=== PATIENT | male | born 1960 ===

== ENCOUNTER 2019-01-21 02:49 | Inpatient (IN) | payer SELFPAY ==
--- NOTE | 2019-01-21 02:55 | C.PDOC ---
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 Medics gave asa, 2 slnt and zofran with some improvement. Pt is very anxious, has some reproducible chest pain. Time Seen by Provider: 01/21/19 02:54 Chief Complaint (Nursing): Chest Pain History Per: Patient, EMS History/Exam Limitations: no limitations Onset/Duration Of Symptoms: Hrs Current Symptoms Are (Timing): Still Present Context: Other Severity: Severe Pain Scale Rating Of: 7 Quality: Aching, Pressure Associated Symptoms: denies: Nausea Modifying Factors: None Exacerbating Factors: None Alleviating Factors: None Nitro Therapy Administered: 2, Per EMS Recent travel outside of the [place]: No Additional History Per: EMS Past Medical History Vital Signs: Last Vital Signs Temp Pulse 127 H 01/21/19 02:51 Resp 16 01/21/19 02:51 BP 126/51 L 01/21/19 02:51 Pulse Ox 94 L 01/21/19 02:51 - [facility] Procedures EXTIRPATION OF MATTER FROM RECTUM, VIA OPENING (06/10/18) Family History: States: No Known Family Hx - Social History Hx Alcohol Use: No Hx Substance Use: No Review Of Systems Constitutional: Negative for: Fever, Chills Eyes: Negative for: Vision Change ENT: Negative for: Throat Pain Cardiovascular: Positive for: Chest Pain. Negative for: Palpitations, Orthopnea Respiratory: Negative for: Shortness of Breath Gastrointestinal: Positive for: Nausea. Negative for: Vomiting, Abdominal Pain Genitourinary: Negative for: Dysuria Musculoskeletal: Negative for: Back Pain Skin: Negative for: Rash Neurological: Negative for: Weakness Psych: Positive for: Anxiety Physical Exam - Physical Exam Appears: In Acute Distress Skin: Warm, Dry Head: Normacephalic Eye(s): bilateral: Normal Inspection Oral Mucosa: Dry Neck: Supple Chest: Symmetrical, Tenderness (sternal) Cardiovascular: Rhythm Regular Respiratory: No Rales, No Rhonchi, No Wheezing Gastrointestinal/Abdominal: Soft, No Tenderness, No Distention Back: No CVA Tenderness Extremity: Normal ROM Extremity: Bilateral: Atraumatic Pulses: Left Dorsalis Pedis: Normal, Right Dorsalis Pedis: Normal Neurological/Psych: Oriented x3 Gait: Steady ED Course And Treatment - Laboratory Results Result Diagrams: 01/21/19 03:19 01/21/19 03:19 ECG: Interpreted By Me, Viewed By Me ECG Rhythm: Sinus Tachycardia (128), Nonspecific Changes (wide complex tachycardia, ivcd) O2 Sat by Pulse Oximetry: 94 Pulse Ox Interpretation: Normal - Radiology CXR: Interpreted by Me, Viewed By Me CXR Interpretation: Yes: Other (mild vac congestion). No: Infiltrates, Fracture, Pnemothorax Progress Note: 2:43am texted dr gould the ems ekg - spoke with him - repeat ekg in arrival. 2:54 am ed ekg -as per dr gould - does not meet criteria for code heart. 3:[address] burgess - icu - will come and see the pt in the ed. 4:12 am pt cardioverted with 120J back into nsr 70 bpm. 4:20 repeat ekg shows acute iinferopost mi . [facility] heart called. dr gould on his way Critical Care Time - Critical Care Note Total Time (in mins): 30 Documented critical care: time excludes all time spent performing seperately billable procedures. Disposition Discussed With Dr.: Rylan Del Rosario Comment: accepted the pt [facility] is service and took over the care at 4:21 AM Counseled Patient/Family Regarding: Studies Performed, Diagnosis - Disposition Disposition: HOSPITALIZED Disposition Time: 02:55 Condition: CRITICAL - POA Present On Arrival: None - Clinical Impression Clinical Impression: Acute inferior myocardial infarction, Encounter for cardioversion procedure, Wide-complex tachycardia Decision To Admit - Pt Status Changed To: Hospital Disposition Of: Inpatient - Admit Certification Admit to Inpatient:: After my assessment, the patient will require hospitalization for at least two midnights. This is because of the severity of symptoms shown, intensity of services needed, and/or the medical risk in this patient being treated as an outpatient. - InPatient: Physician Admission Certification: I certify that this patient requires 2 or more midnights of care for the following reason:: After my assessment, the patient will require hospitalization for at least two midnights. This is because of the severity of symptoms shown, intensity of services needed, and/or the medical risk in this patient being treated as an outpatient. - . Bed Request Type: ICU Admitting Physician: Rylan Del Rosario Patient Diagnosis: Acute inferior myocardial infarction, Encounter for cardioversion procedure, Wide-complex tachycardia
[2019-01-21] MEDS ORDERED: DiphenhydrAMINE 50 mg/ml Inj IVP STA (02:56)
[2019-01-21] MEDS ORDERED: Amiodarone 150mg/3 ml vial ONE (02:56)
[2019-01-21] MEDS ORDERED: DiphenhydrAMINE 50 mg/ml Inj ONE (02:59)
[2019-01-21 03:22] LABS: BASO # 0.1 K/uL (0.0-0.2); BASO % 0.4 % (0.0-2.0); EOS # 0.1 K/uL (0.0-0.7); EOS % 0.5 % (0.0-4.0); HEMOGLOBIN 16.1 g/dL (12.0-18.0); LYMPH # 1.1 K/uL (1.0-4.3); LYMPH % 7.4 % (20.0-40.0); MEAN CELL VOLUME 91.9 fL (80.0-94.0); MEAN CORPUSCULAR HEMOGLOBIN 30.1 pg (27.0-31.0); MEAN CORPUSCULAR HGB CONC 32.8 g/dL (33.0-37.0); MEAN PLATELET VOLUME 8.7 fL (7.2-11.7); MONO # 0.6 K/uL (0.0-0.8); MONO % 4.2 % (0.0-10.0); NEUT # 13.4 K/uL (1.8-7.0); NEUT % 87.5 % (50.0-75.0); PLATELET COUNT 349 K/uL (130-400); RBC 5.35 Mil/uL (4.40-5.90); RED CELL DISTRIBUTION WIDTH 16.4 % (11.5-14.5); WHITE BLOOD COUNT 15.4 K/uL (4.8-10.8)
[2019-01-21] MEDS ORDERED: Sodium Chloride 0.9% 1,000 ML IV ONE ×3 (03:26→04:12)
[2019-01-21 03:56] LABS: ALB/GLOB RATIO 1.3 (1.0-2.1); ALBUMIN 4.1 g/dL (3.5-5.0); ALT/SGPT 74 U/L (21-72); AST/SGOT 107 U/L (17-59); BLOOD UREA NITROGEN 15 mg/dL (9-20); CALCIUM 10.1 mg/dl (8.6-10.4); GFR NON-AFRICAN AMERICAN > 60; INR 1.1
[2019-01-21] MEDS ORDERED: Midazolam 2 MG/2 ML VIAL ONE ×3 (04:01→05:25)
[2019-01-21] MEDS ORDERED: Midazolam 50 mg/10 ml Inj IVP ONE (04:15)
[2019-01-21 04:20] LABS: TROPONIN I 0.791 ng/mL (0.00-0.120)
[2019-01-21 04:54] LABS: LYMPHOCYTE 8 % (20-40); MONOCYTE 6 % (0-10); NEUTROPHIL 86 % (50-75); PLATELET ESTIMATE NORMAL (NORMAL); TOTAL CELLS COUNTED 100
[2019-01-21] MEDS ORDERED: Iodixanol 320 MG/ML 200 ML BOTTLE IV ONE (05:04)
[2019-01-21] MEDS ORDERED: Lidocaine 2% MPF (5 ml) Inj ONE (05:22)
[2019-01-21] MEDS ORDERED: DOPamine 400mg/250ml D5W 400 MG/250 ML BAG IV ONE (05:34)
[2019-01-21] MEDS ORDERED: Eptifibatide 0.75 mg/ml 75 MG/100 ML BAG IV ONE (05:40)
[2019-01-21] MEDS ORDERED: Eptifibatide 20 mg/10mL Inj IVP ONE (05:44)
[2019-01-21] MEDS: Eptifibatide 0.75 mg/ml 75 MG/100 ML BAG IV SCH ×4 (06:10→22:47)
--- NOTE | 2019-01-21 06:14 | CP.CCUPN ---
CCU Objective - Vital Signs / Intake & Output Vital Signs (Last 4 hours): Vital Signs Pulse Pulse Resp BP BP Pulse Ox 01/21/19 05:02 94 L 01/21/19 04:45 72 24 111/63 100 01/21/19 04:20 68 24 108/67 100 01/21/19 04:15 63 24 96/62 L 100 01/21/19 04:08 156 H 24 85/64 L 100 01/21/19 03:46 153 H 24 90/56 L 100 01/21/19 03:36 151 H 26 H 92/54 L 100 01/21/19 03:15 139 H 24 88/49 L 100 01/21/19 03:06 147 H 139 H 24 90/50 L 98/49 L 100 01/21/19 03:00 128 H 16 126/61 98 01/21/19 02:51 127 H 16 126/51 L 94 L Intake and Output (Last 8hrs): Intake & Output 01/20/19 01/20/19 01/21/19 14:59 22:59 06:59 Weight 185 lb - Medications Active Medications: Active Medications Generic Name Dose Route Start Last Admin Trade Name Freq PRN Reason Stop Dose Admin Amiodarone HCl 900 mg/ 500 mls @ 33.33 mls/hr 01/21/19 03:15 01/21/19 04:08 Dextrose IV 01/21/19 18:15 33.33 mls/hr .Q15H1M ONE Administration Protocol 1 MG/MIN - Patient Studies Lab Studies: Lab Studies 01/21/19 01/21/19 01/21/19 Range/Units 03:19 03:19 03:19 WBC (4.8-10.8) K/uL RBC (4.40-5.90) Mil/uL Hgb (12.0-18.0) g/dL Hct (35.0-51.0) % MCV (80.0-94.0) fL MCH (27.0-31.0) pg MCHC (33.0-37.0) g/dL RDW (11.5-14.5) % Plt Count (130-400) K/uL MPV (7.2-11.7) fL Neut % (Auto) (50.0-75.0) % Lymph % (Auto) (20.0-40.0) % Wilkes % (Auto) (0.0-10.0) % Eos % (Auto) (0.0-4.0) % Baso % (Auto) (0.0-2.0) % Neut # (Auto) (1.8-7.0) K/uL Lymph # (Auto) (1.0-4.3) K/uL Wilkes # (Auto) (0.0-0.8) K/uL Eos # (Auto) (0.0-0.7) K/uL Baso # (Auto) (0.0-0.2) K/uL Neutrophils % (Manual) (50-75) % Lymphocytes % (Manual) (20-40) % Monocytes % (Manual) (0-10) % Platelet Estimate (NORMAL) PT 12.0 (9.7-12.2) SECONDS INR 1.1 APTT 28 (21-34) SECONDS Sodium 137 (132-148) mmol/L Potassium 4.9 (3.6-5.2) mmol/L Chloride 104 (98-107) mmol/L Carbon Dioxide 24 (22-30) mmol/L Anion Gap 14 (10-20) BUN 15 (9-20) mg/dL Creatinine 1.1 (0.8-1.5) mg/dL Est GFR ( Amer) > 60 Est GFR (Non-Af Amer) > 60 POC Glucose (mg/dL) (65-110) mg/dL Random Glucose 110 (75-110) mg/dL Calcium 10.1 (8.6-10.4) mg/dl Magnesium 1.6 (1.6-2.3) mg/dL Total Bilirubin 0.8 (0.2-1.3) mg/dL AST 107 H D (17-59) U/L ALT 74 H (21-72) U/L Alkaline Phosphatase 52 (38-126) U/L Troponin I 0.7910 H* (0.00-0.120) ng/mL NT-Pro-B Natriuret Pep 189 (0-900) pg/mL Total Protein 7.3 (6.3-8.3) g/dL Albumin 4.1 (3.5-5.0) g/dL Globulin 3.2 (2.2-3.9) gm/dL Albumin/Globulin Ratio 1.3 (1.0-2.1) TSH 3rd Generation 2.33 (0.46-4.68) mIU/L Alcohol, Quantitative 18 H (0-10) mg/dl Blood Type Antibody Screen 01/21/19 01/21/19 01/21/19 Range/Units 03:19 03:00 02:55 WBC 15.4 H D (4.8-10.8) K/uL RBC 5.35 (4.40-5.90) Mil/uL Hgb 16.1 (12.0-18.0) g/dL Hct 49.2 (35.0-51.0) % MCV 91.9 (80.0-94.0) fL MCH 30.1 (27.0-31.0) pg MCHC 32.8 L (33.0-37.0) g/dL RDW 16.4 H (11.5-14.5) % Plt Count 349 (130-400) K/uL MPV 8.7 (7.2-11.7) fL Neut % (Auto) 87.5 H (50.0-75.0) % Lymph % (Auto) 7.4 L (20.0-40.0) % Wilkes % (Auto) 4.2 (0.0-10.0) % Eos % (Auto) 0.5 (0.0-4.0) % Baso % (Auto) 0.4 (0.0-2.0) % Neut # (Auto) 13.4 H (1.8-7.0) K/uL Lymph # (Auto) 1.1 (1.0-4.3) K/uL Wilkes # (Auto) 0.6 (0.0-0.8) K/uL Eos # (Auto) 0.1 (0.0-0.7) K/uL Baso # (Auto) 0.1 (0.0-0.2) K/uL Neutrophils % (Manual) 86 H (50-75) % Lymphocytes % (Manual) 8 L (20-40) % Monocytes % (Manual) 6 (0-10) % Platelet Estimate Normal (NORMAL) PT (9.7-12.2) SECONDS INR APTT (21-34) SECONDS Sodium (132-148) mmol/L Potassium (3.6-5.2) mmol/L Chloride (98-107) mmol/L Carbon Dioxide (22-30) mmol/L Anion Gap (10-20) BUN (9-20) mg/dL Creatinine (0.8-1.5) mg/dL Est GFR ( Amer) Est GFR (Non-Af Amer) POC Glucose (mg/dL) 109 (65-110) mg/dL Random Glucose (75-110) mg/dL Calcium (8.6-10.4) mg/dl Magnesium (1.6-2.3) mg/dL Total Bilirubin (0.2-1.3) mg/dL AST (17-59) U/L ALT (21-72) U/L Alkaline Phosphatase (38-126) U/L Troponin I (0.00-0.120) ng/mL NT-Pro-B Natriuret Pep (0-900) pg/mL Total Protein (6.3-8.3) g/dL Albumin (3.5-5.0) g/dL Globulin (2.2-3.9) gm/dL Albumin/Globulin Ratio (1.0-2.1) TSH 3rd Generation (0.46-4.68) mIU/L Alcohol, Quantitative (0-10) mg/dl Blood Type O POSITIVE Antibody Screen Negative Laboratory Results - last 24 hr 01/21/19 01/21/19 01/21/19 02:55 03:00 03:19 WBC 15.4 H D RBC 5.35 Hgb 16.1 Hct 49.2 MCV 91.9 MCH 30.1 MCHC 32.8 L RDW 16.4 H Plt Count 349 MPV 8.7 Neut % (Auto) 87.5 H Lymph % (Auto) 7.4 L Wilkes % (Auto) 4.2 Eos % (Auto) 0.5 Baso % (Auto) 0.4 Neut # (Auto) 13.4 H Lymph # (Auto) 1.1 Wilkes # (Auto) 0.6 Eos # (Auto) 0.1 Baso # (Auto) 0.1 Neutrophils % (Manual) 86 H Lymphocytes % (Manual) 8 L Monocytes % (Manual) 6 Platelet Estimate Normal PT INR APTT Sodium Potassium Chloride Carbon Dioxide Anion Gap BUN Creatinine Est GFR ( Amer) Est GFR (Non-Af Amer) POC Glucose (mg/dL) 109 Random Glucose Calcium Magnesium Total Bilirubin AST ALT Alkaline Phosphatase Troponin I NT-Pro-B Natriuret Pep Total Protein Albumin Globulin Albumin/Globulin Ratio TSH 3rd Generation Alcohol, Quantitative Blood Type O POSITIVE Antibody Screen Negative 01/21/19 01/21/19 01/21/19 03:19 03:19 03:19 WBC RBC Hgb Hct MCV MCH MCHC RDW Plt Count MPV Neut % (Auto) Lymph % (Auto) Wilkes % (Auto) Eos % (Auto) Baso % (Auto) Neut # (Auto) Lymph # (Auto) Wilkes # (Auto) Eos # (Auto) Baso # (Auto) Neutrophils % (Manual) Lymphocytes % (Manual) Monocytes % (Manual) Platelet Estimate PT 12.0 INR 1.1 APTT 28 Sodium 137 Potassium 4.9 Chloride 104 Carbon Dioxide 24 Anion Gap 14 BUN 15 Creatinine 1.1 Est GFR ( Amer) > 60 Est GFR (Non-Af Amer) > 60 POC Glucose (mg/dL) Random Glucose 110 Calcium 10.1 Magnesium 1.6 Total Bilirubin 0.8 AST 107 H D ALT 74 H Alkaline Phosphatase 52 Troponin I 0.7910 H* NT-Pro-B Natriuret Pep 189 Total Protein 7.3 Albumin 4.1 Globulin 3.2 Albumin/Globulin Ratio 1.3 TSH 3rd Generation 2.33 Alcohol, Quantitative 18 H Blood Type Antibody Screen EKG/Cardiology Studies: Cardiology / EKG Studies 01/21/19 02:55 ELECTROCARDIOGRAM Stat Comment: Mode Of Transportation: BED Reason For Exam: chest pain Fingerstick Blood Sugar Results: 109
--- NOTE | 2019-01-21 07:04 | CP.PCM.HP ---
<Brittney Dawson - Last Filed: 01/21/19 07:38> History of Present Illness - History of Present Illness History of Present Illness: cc: "chest pain" 58 year old male with unknown PMH was BIBA for sudden onset chest pain approximately 1 hour [employer]. He was found to be in wide complex tachycardia en route. Repeat EKG in ED showed wide complex tachycardia. He was given high dose ASA, 3mg midazolam and cardioverted in the ED. Post cardioversion, repeat EKG showed STEMI in inferior leads and Code Heart called. Unable to obtain further history since patient was not verbally responsive at that time. Present on Admission - Present on Admission Any Indicators Present on Admission: No Review of Systems - Review of Systems Systems not reviewed;Unavailable: Acuity of Condition, Altered Mental Status Past Patient History - Past Social History Smoking Status: Light Smoker < 10 Cigarettes Daily - MUSCULOSKELETAL/RHEUMATOLOGICAL Hx Falls: No - GASTROINTESTINAL Other/Comment: foreign body inside the rectum - PSYCHIATRIC Hx Substance Use: No - SURGICAL HISTORY Hx Surgeries: No - ANESTHESIA Hx Anesthesia: No Hx Anesthesia Reactions: No Hx Malignant Hyperthermia: No Meds Allergies/Adverse Reactions: Allergies Allergy/AdvReac Type Severity Reaction Status Date / Time No Known Allergies Allergy Verified 01/21/19 02:54 Physical Exam - Constitutional Appears: In Acute Distress - Head Exam Head Exam: ATRAUMATIC, NORMOCEPHALIC - Eye Exam Eye Exam: PERRL - ENT Exam ENT Exam: Mucous Membranes Moist - Respiratory Exam Respiratory Exam: Clear to Auscultation Bilateral, NORMAL BREATHING PATTERN - Cardiovascular Exam Cardiovascular Exam: Tachycardia, +S1, +S2 - GI/Abdominal Exam GI & Abdominal Exam: Distended, Soft - Extremities Exam Extremities exam: Positive for: normal capillary refill, pedal pulses present - Neurological Exam Neurological exam: Altered - Skin Skin Exam: Dry, Normal Color, Warm Results - Vital Signs Recent Vital Signs: Last Vital Signs Temp Pulse 72 01/21/19 04:45 Resp 24 01/21/19 04:45 BP 111/63 01/21/19 04:45 Pulse Ox 94 L 01/21/19 05:02 - Labs Result Diagrams: 01/21/19 03:19 01/21/19 03:19 Labs: Laboratory Results - last 24 hr 01/21/19 01/21/19 01/21/19 02:55 03:00 03:19 WBC 15.4 H D RBC 5.35 Hgb 16.1 Hct 49.2 MCV 91.9 MCH 30.1 MCHC 32.8 L RDW 16.4 H Plt Count 349 MPV 8.7 Neut % (Auto) 87.5 H Lymph % (Auto) 7.4 L Giles % (Auto) 4.2 Eos % (Auto) 0.5 Baso % (Auto) 0.4 Neut # (Auto) 13.4 H Lymph # (Auto) 1.1 Giles # (Auto) 0.6 Eos # (Auto) 0.1 Baso # (Auto) 0.1 Neutrophils % (Manual) 86 H Lymphocytes % (Manual) 8 L Monocytes % (Manual) 6 Platelet Estimate Normal PT INR APTT Sodium Potassium Chloride Carbon Dioxide Anion Gap BUN Creatinine Est GFR ( Amer) Est GFR (Non-Af Amer) POC Glucose (mg/dL) 109 Random Glucose Calcium Magnesium Total Bilirubin AST ALT Alkaline Phosphatase Troponin I NT-Pro-B Natriuret Pep Total Protein Albumin Globulin Albumin/Globulin Ratio TSH 3rd Generation Alcohol, Quantitative Blood Type O POSITIVE Antibody Screen Negative 01/21/19 01/21/19 01/21/19 03:19 03:19 03:19 WBC RBC Hgb Hct MCV MCH MCHC RDW Plt Count MPV Neut % (Auto) Lymph % (Auto) Giles % (Auto) Eos % (Auto) Baso % (Auto) Neut # (Auto) Lymph # (Auto) Giles # (Auto) Eos # (Auto) Baso # (Auto) Neutrophils % (Manual) Lymphocytes % (Manual) Monocytes % (Manual) Platelet Estimate PT 12.0 INR 1.1 APTT 28 Sodium 137 Potassium 4.9 Chloride 104 Carbon Dioxide 24 Anion Gap 14 BUN 15 Creatinine 1.1 Est GFR ( Amer) > 60 Est GFR (Non-Af Amer) > 60 POC Glucose (mg/dL) Random Glucose 110 Calcium 10.1 Magnesium 1.6 Total Bilirubin 0.8 AST 107 H D ALT 74 H Alkaline Phosphatase 52 Troponin I 0.7910 H* NT-Pro-B Natriuret Pep 189 Total Protein 7.3 Albumin 4.1 Globulin 3.2 Albumin/Globulin Ratio 1.3 TSH 3rd Generation 2.33 Alcohol, Quantitative 18 H Blood Type Antibody Screen - EKG Data EKG Interpreted by: ER Physician EKG shows normal: QRS complexes - EKG Data When Compared to Previous EKG: Significant Changes Assessment & Plan - Assessment and Plan (Free Text) Assessment: 58yo M with unknown PMH BIBA for acute onset chest pain, cardioverted in ED, and shown to be having STEMI. Code Heart called, currently post cath in ICU. Plan: STEMI Patient is s/p cardiac catherization by Dr. Raygoza. Orders per ICU d/w Dr. Carin Dawson PGY-1 - Date & Time Date: 01/21/19 Time: 04:30 <Rylan Del Rosario - Last Filed: 01/21/19 19:03> Results - Vital Signs Recent Vital Signs: Last Vital Signs Temp 99.3 F 01/21/19 16:00 Pulse 76 01/21/19 18:00 Resp 15 01/21/19 18:00 BP 134/67 01/21/19 17:29 Pulse Ox 97 01/21/19 18:00 - Labs Result Diagrams: 01/21/19 03:19 01/21/19 03:19 Labs: Laboratory Results - last 24 hr 01/21/19 01/21/19 01/21/19 02:55 03:00 03:19 WBC 15.4 H D RBC 5.35 Hgb 16.1 Hct 49.2 MCV 91.9 MCH 30.1 MCHC 32.8 L RDW 16.4 H Plt Count 349 MPV 8.7 Neut % (Auto) 87.5 H Lymph % (Auto) 7.4 L Giles % (Auto) 4.2 Eos % (Auto) 0.5 Baso % (Auto) 0.4 Neut # (Auto) 13.4 H Lymph # (Auto) 1.1 Giles # (Auto) 0.6 Eos # (Auto) 0.1 Baso # (Auto) 0.1 Neutrophils % (Manual) 86 H Lymphocytes % (Manual) 8 L Monocytes % (Manual) 6 Platelet Estimate Normal PT INR APTT Sodium Potassium Chloride Carbon Dioxide Anion Gap BUN Creatinine Est GFR ( Amer) Est GFR (Non-Af Amer) POC Glucose (mg/dL) 109 Random Glucose Hemoglobin A1c Calcium Magnesium Total Bilirubin AST ALT Alkaline Phosphatase Troponin I NT-Pro-B Natriuret Pep Total Protein Albumin Globulin Albumin/Globulin Ratio Triglycerides Cholesterol LDL Cholesterol Direct HDL Cholesterol TSH 3rd Generation Alcohol, Quantitative Blood Type O POSITIVE Antibody Screen Negative 01/21/19 01/21/19 01/21/19 03:19 03:19 03:19 WBC RBC Hgb Hct MCV MCH MCHC RDW Plt Count MPV Neut % (Auto) Lymph % (Auto) Giles % (Auto) Eos % (Auto) Baso % (Auto) Neut # (Auto) Lymph # (Auto) Giles # (Auto) Eos # (Auto) Baso # (Auto) Neutrophils % (Manual) Lymphocytes % (Manual) Monocytes % (Manual) Platelet Estimate PT 12.0 INR 1.1 APTT 28 Sodium 137 Potassium 4.9 Chloride 104 Carbon Dioxide 24 Anion Gap 14 BUN 15 Creatinine 1.1 Est GFR ( Amer) > 60 Est GFR (Non-Af Amer) > 60 POC Glucose (mg/dL) Random Glucose 110 Hemoglobin A1c Calcium 10.1 Magnesium 1.6 Total Bilirubin 0.8 AST 107 H D ALT 74 H Alkaline Phosphatase 52 Troponin I 0.7910 H* NT-Pro-B Natriuret Pep 189 Total Protein 7.3 Albumin 4.1 Globulin 3.2 Albumin/Globulin Ratio 1.3 Triglycerides 102 Cholesterol 143 LDL Cholesterol Direct 116 HDL Cholesterol 21 L TSH 3rd Generation 2.33 Alcohol, Quantitative 18 H Blood Type Antibody Screen 01/21/19 01/21/19 08:32 10:45 WBC RBC Hgb Hct MCV MCH MCHC RDW Plt Count MPV Neut % (Auto) Lymph % (Auto) Giles % (Auto) Eos % (Auto) Baso % (Auto) Neut # (Auto) Lymph # (Auto) Giles # (Auto) Eos # (Auto) Baso # (Auto) Neutrophils % (Manual) Lymphocytes % (Manual) Monocytes % (Manual) Platelet Estimate PT INR APTT Sodium Potassium Chloride Carbon Dioxide Anion Gap BUN Creatinine Est GFR ( Amer) Est GFR (Non-Af Amer) POC Glucose (mg/dL) Random Glucose Hemoglobin A1c 4.9 Calcium Magnesium Total Bilirubin AST ALT Alkaline Phosphatase Troponin I 242.0000 H* NT-Pro-B Natriuret Pep Total Protein Albumin Globulin Albumin/Globulin Ratio Triglycerides Cholesterol LDL Cholesterol Direct HDL Cholesterol TSH 3rd Generation Alcohol, Quantitative Blood Type Antibody Screen Assessment & Plan - Date & Time Date: 01/21/19 (I have seen and examined the patient. I agree with the findings and plan of care as documented by Dr. Dawson. Patient with chest pain. STEMI. Code heart called in ED. Intervention by Dr Raygoza. Admit to ICU after cath. Further management as per Cardio and ICU. Monitor for acute changes.) Time: 19:02 Attending/Attestation - Attestation I have personally seen and examined this patient.: Yes I have fully participated in the care of the patient.: Yes I have reviewed all pertinent clinical information: Yes
[2019-01-21] MEDS: Sodium Chloride 0.9% 1,000 ML IV SCH (07:15)
--- NOTE | 2019-01-21 07:38 | RAD ---
Date of service: 01/21/2019 HISTORY: chest pain COMPARISON: None available. TECHNIQUE: 1 view obtained. FINDINGS: LUNGS: Marked emphysematous changes favored over pneumothorax medial left apex. Clinically correlate further. No infiltrate bilaterally. PLEURA: No significant pleural effusion identified, no pneumothorax apparent. CARDIOVASCULAR: No aortic atherosclerotic calcification present. Normal cardiac size. No pulmonary vascular congestion. OSSEOUS STRUCTURES: No significant abnormalities. VISUALIZED UPPER ABDOMEN: Normal. OTHER FINDINGS: None. IMPRESSION: Marked emphysematous changes medial left apex. No acute infiltrate or pleural effusion. No definitive pneumothorax. Clinically correlate further nevertheless.
--- NOTE | 2019-01-21 09:30 | CP.PCM.PN ---
Subjective - Date & Time of Evaluation Date of Evaluation: 01/21/19 Time of Evaluation: 09:20 - Subjective Subjective: Medical Attending Note: Patient seen and examined. Patient reports he has a girlfriend and reports does not want his girlfriend knowing his information. He reports yesterday he was carrying groceries in his gym bag and felt this heaviness in the chest. He reports he has not had chest pain before. He reports he takes 1-2 shots of beer occasional. 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 He reports he does not take medications at home. He reports on occasion he takes Viagra, which he is advised to not use given he will need medications for his heart and will want to avoid hypotension. Patient reports he says see Dr. Rice. Medical hx: hypertension, prior hospitalization (foreign body insertion/vibrator) Allergies: NKDA Family hx: father-[place] age 55, has 5 brothers/sisters; he is the oldest Social: 3 cigarettes a week since the age of 17, he reports he eats 6x a day, primarily meat (turkey/chicken/potatoes) HCM: Dr. Rice. Objective - Vital Signs/Intake and Output Vital Signs (last 24 hours): Temp Pulse Resp BP Pulse Ox 98.2 F 65 22 118/67 97 01/21/19 08:00 01/21/19 08:40 01/21/19 08:40 01/21/19 08:30 01/21/19 08:40 Intake and Output: 01/21/19 01/21/19 06:59 18:59 Intake Total 63.4 190.2 Output Total 0 350 Balance 63.4 -159.8 - Medications Medications: Current Medications Aspirin (Aspirin Chewable) 81 mg PO DAILY [facility] Carvedilol (Coreg) 3.125 mg PO BID [facility] Eptifibatide (Integrilin) 75 mg in 100 mls @ 13.426 mls/hr IV .Q7H27M [facility] Last Admin: 01/21/19 06:10 Dose: 13.426 mls/hr Sodium Chloride (Sodium Chloride 0.9%) 1,000 mls @ 50 mls/hr IV .Q20H [facility] Last Admin: 01/21/19 07:15 Dose: 50 mls/hr Rosuvastatin Calcium (Crestor) 5 mg PO HS [facility] Ticagrelor (Brilinta) 60 mg PO BID [facility]ANI - Labs Labs: 01/21/19 03:19 01/21/19 03:19 PT 12.0 SECONDS (9.7-12.2) 01/21/19 03:19 INR 1.1 01/21/19 03:19 APTT 28 SECONDS (21-34) 01/21/19 03:19 - Constitutional Appears: Non-toxic, No Acute Distress - Head Exam Head Exam: NORMAL INSPECTION Additional comments: very flushed over the chest and sun burned - Eye Exam Eye Exam: EOMI - ENT Exam ENT Exam: Mucous Membranes Moist - Respiratory Exam Respiratory Exam: Clear to Ausculation Bilateral, NORMAL BREATHING PATTERN. absent: Rales, Rhonchi, Wheezes - Cardiovascular Exam Cardiovascular Exam: REGULAR RHYTHM, +S1, +S2 - GI/Abdominal Exam GI & Abdominal Exam: Soft, Normal Bowel Sounds. absent: Distended, Firm, Guarding, Rigid, Tenderness, Rebound - Extremities Exam Extremities Exam: absent: Pedal Edema, Tenderness Additional comments: toe nails are very brittle and green (reports it is from dye from [email or web address] shoes) - Neurological Exam Neurological Exam: Alert, Awake, Oriented x3 - Skin Skin Exam: Normal Color (except for toe nails), Warm Assessment and Plan (1) Acute inferior myocardial infarction Status: Acute (2) Hypertension Status: Acute (3) Smoker Status: Acute (4) Family history of [place] (myocardial infarction) Status: Acute (5) Alcohol use Status: Acute (6) Prophylactic measure Status: Acute
--- NOTE | 2019-01-21 09:34 | CP.PCM.PN ---
Subjective - Date & Time of Evaluation Date of Evaluation: 01/21/19 Time of Evaluation: 09:00 - Subjective Subjective: Medical Attending Note: Patient seen and examined. Patient reports he has a girlfriend and reports does not want his girlfriend knowing his information. He reports yesterday he was carrying groceries in his gym bag and felt this heaviness in the chest. He reports he has not had chest pain before. He reports he takes 1-2 shots of beer occasional. 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 He reports he does not take medications at home. He reports on occasion he takes Viagra, which he is advised to not use given he will need medications for his heart and will want to avoid hypotension. Patient reports he says see Dr. Rice. Presently, patient is hungry wants his breakfast. reports mild tinging in his chest, denies headache, denies shortness of breathe, denies cough, denies abdominal pain, denies leg cramps, denies constipation, denies diarrhea. Patient reports the color his nails is dye from his rain soaked [employer] shoes. Medical hx: hypertension, prior hospitalization (foreign body insertion/vibrator), migraines Surgery hx: cyst removed over right side of chest, and foreign body removed Allergies: NKDA Family hx: father-RI age 55, has 5 brothers/sisters; he is the oldest Social: 3 cigarettes a week since the age of 17, he reports he eats 6x a day, primarily meat (turkey/chicken/potatoes) HCM: Dr. Rice. Objective - Vital Signs/Intake and Output Vital Signs (last 24 hours): Temp Pulse Resp BP Pulse Ox 98.2 F 68 12 117/60 98 01/21/19 08:00 01/21/19 09:28 01/21/19 09:28 01/21/19 09:28 01/21/19 09:28 Intake and Output: 01/21/19 01/21/19 06:59 18:59 Intake Total 63.4 190.2 Output Total 0 350 Balance 63.4 -159.8 - Medications Medications: Current Medications Aspirin (Aspirin Chewable) 81 mg PO DAILY [facility] Carvedilol (Coreg) 3.125 mg PO BID [facility] Eptifibatide (Integrilin) 75 mg in 100 mls @ 13.426 mls/hr IV .Q7H27M [facility] Last Admin: 01/21/19 06:10 Dose: 13.426 mls/hr Sodium Chloride (Sodium Chloride 0.9%) 1,000 mls @ 50 mls/hr IV .Q20H [facility] Last Admin: 01/21/19 07:15 Dose: 50 mls/hr Rosuvastatin Calcium (Crestor) 5 mg PO HS [facility] Ticagrelor (Brilinta) 60 mg PO BID [facility] - Labs Labs: 01/21/19 03:19 01/21/19 03:19 PT 12.0 SECONDS (9.7-12.2) 01/21/19 03:19 INR 1.1 01/21/19 03:19 APTT 28 SECONDS (21-34) 01/21/19 03:19 - Constitutional Appears: Non-toxic, No Acute Distress - Head Exam Head Exam: NORMAL INSPECTION Additional comments: flushed/sunburned - Eye Exam Eye Exam: EOMI - ENT Exam ENT Exam: Mucous Membranes Moist - Respiratory Exam Respiratory Exam: Clear to Ausculation Bilateral, NORMAL BREATHING PATTERN. absent: Rales, Rhonchi, Wheezes - Cardiovascular Exam Cardiovascular Exam: REGULAR RHYTHM, +S1, +S2 - GI/Abdominal Exam GI & Abdominal Exam: Soft, Normal Bowel Sounds. absent: Distended, Firm, Guarding, Rigid, Tenderness, Rebound - Extremities Exam Extremities Exam: absent: Pedal Edema, Tenderness Additional comments: nails: green dye, broken nails, poor hygiene - Neurological Exam Neurological Exam: Alert, Awake, Oriented x3 - Psychiatric Exam Psychiatric exam: Normal Affect, Normal Mood - Skin Skin Exam: Dry, Intact, Normal Color, Warm Assessment and Plan (1) Acute inferior myocardial infarction Assessment & Plan: Cardiology (Dr. Raygoza) on case-->help appreciated Code heart Aspirin 81mg PO daily Coreg 3.125mg PO BID Integriln drip Crestor 5mg POqHS Brilinta 90mg PO biD pending cath report Echocardiogram GARCIA: male, hypertension, smoker, and family history of RI (father age 55) EKG: inferior wall RI +troponin a1c: 4.9 Lipid panel: check TSH pending UDS Status: Acute (2) Alcohol use Assessment & Plan: admits to 1-2 shots of beer occasional elevated alcohol on admission patient does not appear in withdrawal Status: Acute (3) Family history of RI (myocardial infarction) Assessment & Plan: Father at age 55 Status: Acute (4) Hypertension Assessment & Plan: Coreg 3.125mg PO BID Status: Acute (5) Smoker Assessment & Plan: smoking cessation advised nictone patch ordered Status: Acute (6) Obesity Assessment & Plan: 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
--- NOTE | 2019-01-21 10:51 | CP.CCUPN ---
CCU Subjective - Physician Review Subjective (Free Text): STEMI S/P Cardiac Cath Pt seen and evaluated this am. Denies chest pain or sob. Reports mild right inguinal pain, states he had hernia repair years ago. Critical Care Time Spent (in minutes): 35 CCU Objective - Vital Signs / Intake & Output Vital Signs (Last 4 hours): Vital Signs Temp Pulse Resp BP Pulse Ox 01/21/19 08:40 65 22 97 01/21/19 08:30 66 22 01/21/19 08:28 66 21 118/67 01/21/19 08:20 69 23 01/21/19 08:16 66 23 117/69 01/21/19 08:10 68 22 100 01/21/19 08:01 65 16 121/71 100 01/21/19 08:00 98.2 F 69 17 100 01/21/19 07:50 78 15 99 01/21/19 07:46 69 15 112/74 100 01/21/19 07:40 68 20 99 01/21/19 07:31 71 24 111/67 99 01/21/19 07:30 73 24 99 01/21/19 07:20 70 23 99 01/21/19 07:16 68 21 113/70 99 01/21/19 07:10 68 23 99 01/21/19 07:01 68 20 113/69 100 01/21/19 07:00 68 24 100 01/21/19 06:50 67 24 100 01/21/19 06:46 66 24 112/68 100 01/21/19 06:41 20 01/21/19 06:40 66 20 100 01/21/19 06:31 67 25 H 103/64 99 01/21/19 06:30 98.1 F 77 20 101/59 L 97 01/21/19 06:22 85 26 H 98 01/21/19 05:02 94 L Intake and Output (Last 8hrs): Intake & Output 01/20/19 01/21/19 01/21/19 22:59 06:59 14:59 Intake Total 126.8 Output Total 350 Balance -223.2 Weight 185 lb 196 lb Intake: Intake, IV Amount 126.8 Right Distal Port Forearm 100 Right Forearm 26.8 Output: Urine 350 Urine, Voided 350 Other: Voiding Method Urinal - Physical Exam Head: Positive for: Atraumatic, Normocephalic Pupils: Positive for: PERRL Extroacular Muscles: Positive for: EOMI Mouth: Positive for: Moist Mucous Membranes Respiratory/Chest: Positive for: Clear to Auscultation. Negative for: Respiratory Distress, Wheezes Cardiovascular: Positive for: Regular Rate and Rhythm. Negative for: Murmurs Genitourinary Male: Positive for: Hernias (small inguinal bulge, non tender) Lower Extremity: Positive for: NORMAL PULSES, Capillary Refill < 2 s, Other (black nails, pt states it is dye from shoes). Negative for: Edema, Cyanosis, Swelling (no groin swelling or ecchymosis ) Skin: Positive for: Normal Color Psychiatric: Positive for: Alert, Oriented x 3 - Medications Active Medications: Active Medications Generic Name Dose Route Start Last Admin Trade Name Freq PRN Reason Stop Dose Admin Aspirin 81 mg 01/21/19 10:00 Aspirin Chewable PO DAILY [facility] Carvedilol 3.125 mg 01/21/19 10:00 Coreg PO BID [facility] Eptifibatide 75 mg in 100 mls @ 13.426 mls/hr 01/21/19 07:15 01/21/19 06:10 Integrilin IV 13.426 mls/hr .Q7H27M [facility] Administration 2 MCG/KG/MIN Sodium Chloride 1,000 mls @ 50 mls/hr 01/21/19 07:15 01/21/19 07:15 Sodium Chloride 0.9% IV 50 mls/hr .Q20H [facility] Administration Rosuvastatin Calcium 5 mg 01/21/19 22:00 Crestor PO HS [facility] Ticagrelor 60 mg 01/21/19 10:00 Brilinta PO BID [facility] - Patient Studies Lab Studies: Lab Studies 01/21/19 01/21/19 01/21/19 Range/Units 08:32 03:19 03:19 WBC (4.8-10.8) K/uL RBC (4.40-5.90) Mil/uL Hgb (12.0-18.0) g/dL Hct (35.0-51.0) % MCV (80.0-94.0) fL MCH (27.0-31.0) pg MCHC (33.0-37.0) g/dL RDW (11.5-14.5) % Plt Count (130-400) K/uL MPV (7.2-11.7) fL Neut % (Auto) (50.0-75.0) % Lymph % (Auto) (20.0-40.0) % [place] % (Auto) (0.0-10.0) % Eos % (Auto) (0.0-4.0) % Baso % (Auto) (0.0-2.0) % Neut # (Auto) (1.8-7.0) K/uL Lymph # (Auto) (1.0-4.3) K/uL [place] # (Auto) (0.0-0.8) K/uL Eos # (Auto) (0.0-0.7) K/uL Baso # (Auto) (0.0-0.2) K/uL Neutrophils % (Manual) (50-75) % Lymphocytes % (Manual) (20-40) % Monocytes % (Manual) (0-10) % Platelet Estimate (NORMAL) PT (9.7-12.2) SECONDS INR APTT (21-34) SECONDS Sodium 137 (132-148) mmol/L Potassium 4.9 (3.6-5.2) mmol/L Chloride 104 (98-107) mmol/L Carbon Dioxide 24 (22-30) mmol/L Anion Gap 14 (10-20) BUN 15 (9-20) mg/dL Creatinine 1.1 (0.8-1.5) mg/dL Est GFR ( Amer) > 60 Est GFR (Non-Af Amer) > 60 POC Glucose (mg/dL) (65-110) mg/dL Random Glucose 110 (75-110) mg/dL Hemoglobin A1c 4.9 (4.2-6.5) % Calcium 10.1 (8.6-10.4) mg/dl Magnesium 1.6 (1.6-2.3) mg/dL Total Bilirubin 0.8 (0.2-1.3) mg/dL AST 107 H D (17-59) U/L ALT 74 H (21-72) U/L Alkaline Phosphatase 52 (38-126) U/L Troponin I 0.7910 H* (0.00-0.120) ng/mL NT-Pro-B Natriuret Pep 189 (0-900) pg/mL Total Protein 7.3 (6.3-8.3) g/dL Albumin 4.1 (3.5-5.0) g/dL Globulin 3.2 (2.2-3.9) gm/dL Albumin/Globulin Ratio 1.3 (1.0-2.1) Triglycerides 102 (0-149) mg/dL Cholesterol 143 (0-199) mg/dL HDL Cholesterol 21 L (30-70) mg/dL TSH 3rd Generation 2.33 (0.46-4.68) mIU/L Alcohol, Quantitative 18 H (0-10) mg/dl Blood Type Antibody Screen 01/21/19 01/21/19 01/21/19 Range/Units 03:19 03:19 03:00 WBC 15.4 H D (4.8-10.8) K/uL RBC 5.35 (4.40-5.90) Mil/uL Hgb 16.1 (12.0-18.0) g/dL Hct 49.2 (35.0-51.0) % MCV 91.9 (80.0-94.0) fL MCH 30.1 (27.0-31.0) pg MCHC 32.8 L (33.0-37.0) g/dL RDW 16.4 H (11.5-14.5) % Plt Count 349 (130-400) K/uL MPV 8.7 (7.2-11.7) fL Neut % (Auto) 87.5 H (50.0-75.0) % Lymph % (Auto) 7.4 L (20.0-40.0) % [place] % (Auto) 4.2 (0.0-10.0) % Eos % (Auto) 0.5 (0.0-4.0) % Baso % (Auto) 0.4 (0.0-2.0) % Neut # (Auto) 13.4 H (1.8-7.0) K/uL Lymph # (Auto) 1.1 (1.0-4.3) K/uL [place] # (Auto) 0.6 (0.0-0.8) K/uL Eos # (Auto) 0.1 (0.0-0.7) K/uL Baso # (Auto) 0.1 (0.0-0.2) K/uL Neutrophils % (Manual) 86 H (50-75) % Lymphocytes % (Manual) 8 L (20-40) % Monocytes % (Manual) 6 (0-10) % Platelet Estimate Normal (NORMAL) PT 12.0 (9.7-12.2) SECONDS INR 1.1 APTT 28 (21-34) SECONDS Sodium (132-148) mmol/L Potassium (3.6-5.2) mmol/L Chloride (98-107) mmol/L Carbon Dioxide (22-30) mmol/L Anion Gap (10-20) BUN (9-20) mg/dL Creatinine (0.8-1.5) mg/dL Est GFR ( Amer) Est GFR (Non-Af Amer) POC Glucose (mg/dL) 109 (65-110) mg/dL Random Glucose (75-110) mg/dL Hemoglobin A1c (4.2-6.5) % Calcium (8.6-10.4) mg/dl Magnesium (1.6-2.3) mg/dL Total Bilirubin (0.2-1.3) mg/dL AST (17-59) U/L ALT (21-72) U/L Alkaline Phosphatase (38-126) U/L Troponin I (0.00-0.120) ng/mL NT-Pro-B Natriuret Pep (0-900) pg/mL Total Protein (6.3-8.3) g/dL Albumin (3.5-5.0) g/dL Globulin (2.2-3.9) gm/dL Albumin/Globulin Ratio (1.0-2.1) Triglycerides (0-149) mg/dL Cholesterol (0-199) mg/dL HDL Cholesterol (30-70) mg/dL TSH 3rd Generation (0.46-4.68) mIU/L Alcohol, Quantitative (0-10) mg/dl Blood Type Antibody Screen 01/21/19 Range/Units 02:55 WBC (4.8-10.8) K/uL RBC (4.40-5.90) Mil/uL Hgb (12.0-18.0) g/dL Hct (35.0-51.0) % MCV (80.0-94.0) fL MCH (27.0-31.0) pg MCHC (33.0-37.0) g/dL RDW (11.5-14.5) % Plt Count (130-400) K/uL MPV (7.2-11.7) fL Neut % (Auto) (50.0-75.0) % Lymph % (Auto) (20.0-40.0) % [place] % (Auto) (0.0-10.0) % Eos % (Auto) (0.0-4.0) % Baso % (Auto) (0.0-2.0) % Neut # (Auto) (1.8-7.0) K/uL Lymph # (Auto) (1.0-4.3) K/uL [place] # (Auto) (0.0-0.8) K/uL Eos # (Auto) (0.0-0.7) K/uL Baso # (Auto) (0.0-0.2) K/uL Neutrophils % (Manual) (50-75) % Lymphocytes % (Manual) (20-40) % Monocytes % (Manual) (0-10) % Platelet Estimate (NORMAL) PT (9.7-12.2) SECONDS INR APTT (21-34) SECONDS Sodium (132-148) mmol/L Potassium (3.6-5.2) mmol/L Chloride (98-107) mmol/L Carbon Dioxide (22-30) mmol/L Anion Gap (10-20) BUN (9-20) mg/dL Creatinine (0.8-1.5) mg/dL Est GFR ( Amer) Est GFR (Non-Af Amer) POC Glucose (mg/dL) (65-110) mg/dL Random Glucose (75-110) mg/dL Hemoglobin A1c (4.2-6.5) % Calcium (8.6-10.4) mg/dl Magnesium (1.6-2.3) mg/dL Total Bilirubin (0.2-1.3) mg/dL AST (17-59) U/L ALT (21-72) U/L Alkaline Phosphatase (38-126) U/L Troponin I (0.00-0.120) ng/mL NT-Pro-B Natriuret Pep (0-900) pg/mL Total Protein (6.3-8.3) g/dL Albumin (3.5-5.0) g/dL Globulin (2.2-3.9) gm/dL Albumin/Globulin Ratio (1.0-2.1) Triglycerides (0-149) mg/dL Cholesterol (0-199) mg/dL HDL Cholesterol (30-70) mg/dL TSH 3rd Generation (0.46-4.68) mIU/L Alcohol, Quantitative (0-10) mg/dl Blood Type O POSITIVE Antibody Screen Negative Laboratory Results - last 24 hr 01/21/19 01/21/19 01/21/19 02:55 03:00 03:19 WBC 15.4 H D RBC 5.35 Hgb 16.1 Hct 49.2 MCV 91.9 MCH 30.1 MCHC 32.8 L RDW 16.4 H Plt Count 349 MPV 8.7 Neut % (Auto) 87.5 H Lymph % (Auto) 7.4 L [place] % (Auto) 4.2 Eos % (Auto) 0.5 Baso % (Auto) 0.4 Neut # (Auto) 13.4 H Lymph # (Auto) 1.1 [place] # (Auto) 0.6 Eos # (Auto) 0.1 Baso # (Auto) 0.1 Neutrophils % (Manual) 86 H Lymphocytes % (Manual) 8 L Monocytes % (Manual) 6 Platelet Estimate Normal PT INR APTT Sodium Potassium Chloride Carbon Dioxide Anion Gap BUN Creatinine Est GFR ( Amer) Est GFR (Non-Af Amer) POC Glucose (mg/dL) 109 Random Glucose Hemoglobin A1c Calcium Magnesium Total Bilirubin AST ALT Alkaline Phosphatase Troponin I NT-Pro-B Natriuret Pep Total Protein Albumin Globulin Albumin/Globulin Ratio Triglycerides Cholesterol HDL Cholesterol TSH 3rd Generation Alcohol, Quantitative Blood Type O POSITIVE Antibody Screen Negative 01/21/19 01/21/19 01/21/19 03:19 03:19 03:19 WBC RBC Hgb Hct MCV MCH MCHC RDW Plt Count MPV Neut % (Auto) Lymph % (Auto) [place] % (Auto) Eos % (Auto) Baso % (Auto) Neut # (Auto) Lymph # (Auto) [place] # (Auto) Eos # (Auto) Baso # (Auto) Neutrophils % (Manual) Lymphocytes % (Manual) Monocytes % (Manual) Platelet Estimate PT 12.0 INR 1.1 APTT 28 Sodium 137 Potassium 4.9 Chloride 104 Carbon Dioxide 24 Anion Gap 14 BUN 15 Creatinine 1.1 Est GFR ( Amer) > 60 Est GFR (Non-Af Amer) > 60 POC Glucose (mg/dL) Random Glucose 110 Hemoglobin A1c Calcium 10.1 Magnesium 1.6 Total Bilirubin 0.8 AST 107 H D ALT 74 H Alkaline Phosphatase 52 Troponin I 0.7910 H* NT-Pro-B Natriuret Pep 189 Total Protein 7.3 Albumin 4.1 Globulin 3.2 Albumin/Globulin Ratio 1.3 Triglycerides 102 Cholesterol 143 HDL Cholesterol 21 L TSH 3rd Generation 2.33 Alcohol, Quantitative 18 H Blood Type Antibody Screen 01/21/19 08:32 WBC RBC Hgb Hct MCV MCH MCHC RDW Plt Count MPV Neut % (Auto) Lymph % (Auto) [place] % (Auto) Eos % (Auto) Baso % (Auto) Neut # (Auto) Lymph # (Auto) [place] # (Auto) Eos # (Auto) Baso # (Auto) Neutrophils % (Manual) Lymphocytes % (Manual) Monocytes % (Manual) Platelet Estimate PT INR APTT Sodium Potassium Chloride Carbon Dioxide Anion Gap BUN Creatinine Est GFR ( Amer) Est GFR (Non-Af Amer) POC Glucose (mg/dL) Random Glucose Hemoglobin A1c 4.9 Calcium Magnesium Total Bilirubin AST ALT Alkaline Phosphatase Troponin I NT-Pro-B Natriuret Pep Total Protein Albumin Globulin Albumin/Globulin Ratio Triglycerides Cholesterol HDL Cholesterol TSH 3rd Generation Alcohol, Quantitative Blood Type Antibody Screen Radiology Impressions: Radiology Impressions Chest X-Ray 01/21/19 02:55 IMPRESSION: Marked emphysematous changes medial left apex. No acute infiltrate or pleural effusion. No definitive pneumothorax. Clinically correlate further nevertheless. EKG/Cardiology Studies: Cardiology / EKG Studies 01/21/19 02:55 ELECTROCARDIOGRAM Stat Comment: Mode Of Transportation: BED Reason For Exam: chest pain Fingerstick Blood Sugar Results: 109 Critical Care Progress Note - Nutrition Nutrition: Nutrition Category Date Time Status Heart Healthy Diet [DIET] Diets 01/21/19 Breakfast Active Assessment/Plan - Assessment and Plan (Free Text) Assessment: Pt is a 58 y/o male hx of active smoker and HTN (not on medication) presented to ED with acute chest pain. Was noted to have wide complex tachycardia on 1st EKG and was cardioverted. Repeat EKG showed demonstrated Inferior wall SD, Troponins 0.79, Code Heart was called, s/p Cardiac Cath with Dr. Raygoza on 01/21. Currently in ICU for cardiac monitoring. Neuro - AO x3 - Pain controlled Cardio - Hemodynamically stable - On initial presentation, was Vtach w/ pulse s/p Cardioversion. Amiodorine ggt d/c. Currently in sinus rhythm - STEMI, s/p Cath on 01/[address] Raygoza. Pending Cardiac Cath report - Currently on ASA, Carvedilol, Brillinta, Integrillin, ggt, Enalpril, and Crestor - Echo pending - F/U Serial Trops q8H Resp - Active smoker, counseled on cessation, nicotine patches - Cxray suggestive of obstructive lung pattern, Pulmicort and Brovana ordered - Otherwise saturating well on rm air - Supplemental O2 to maintain O2sat>90% Renal - BUN/Crea wnl GI - Mild transaminitis, in the setting of recent alcohol use (ETOH 18). Abd US ordered - Cardiac Diet Heme - H/H and platelets stable - Leukocytosis 15.4 (afebrile) maybe 2/2 to STEMI Endocrine - Hga1C 4.9 PPX -GI Pepcid -DVT ppx: Received Heparin 500 units IV prior to cath Discussed case with Dr. Bill Langley, PGY2
--- NOTE | 2019-01-21 15:54 | CP.PCM.CON ---
<Arianna Langley - Last Filed: 01/21/19 15:50> History of Present Illness - History of Present Illness History of Present Illness: Pt is a 58 y/o male hx of active smoker and HTN (not on medication) presented to ED with acute chest pain. Was noted to have wide complex tachycardia on 1st EKG and was cardioverted. Repeat EKG showed demonstrated Inferior wall [place], Troponins 0.79, Code Heart was called, s/p Cardiac Cath with Dr. Raygoza on 01/21. Currently in ICU for cardiac monitoring. Past Patient History - Past Medical History & Family History Past Medical History?: Yes - Past Social History Smoking Status: Light Smoker < 10 Cigarettes Daily - CARDIAC Hx Hypertension: Yes - PULMONARY Hx Emphysema: Yes - NEUROLOGICAL Hx Migraine: Yes - HEENT Hx HEENT Problems: No - RENAL Hx Chronic Kidney Disease: No - ENDOCRINE/METABOLIC Hx Endocrine Disorders: No - HEMATOLOGICAL/ONCOLOGICAL Hx Blood Disorders: No - INTEGUMENTARY Hx Dermatological Problems: No - MUSCULOSKELETAL/RHEUMATOLOGICAL Hx Musculoskeletal Disorders: No Hx Falls: No - GASTROINTESTINAL Hx Gastrointestinal Disorders: No Other/Comment: foreign body inside the rectum - PSYCHIATRIC Hx Substance Use: No - SURGICAL HISTORY Hx Surgeries: No - ANESTHESIA Hx Anesthesia: No Hx Anesthesia Reactions: No Hx Malignant Hyperthermia: No Meds Allergies/Adverse Reactions: Allergies Allergy/AdvReac Type Severity Reaction Status Date / Time No Known Allergies Allergy Verified 01/21/19 02:54 - Medications Medications: Current Medications Albuterol/Ipratropium (Duoneb 3 Mg/0.5 Mg (3 Ml) Ud) 3 ml INH RQ6 PRN PRN Reason: Shortness of Breath Arformoterol Tartrate (Brovana) 15 mcg INH RQ12 [facility] Aspirin (Aspirin Chewable) 81 mg PO DAILY [facility] Last Admin: 01/21/19 10:56 Dose: 81 mg Budesonide (Pulmicort Respules) 0.25 mg INH RQ12 [facility] Carvedilol (Coreg) 3.125 mg PO BID [facility] Last Admin: 01/21/19 10:55 Dose: 3.125 mg Enalapril Maleate (Vasotec) 2.5 mg PO DAILY [facility] Last Admin: 01/21/19 10:55 Dose: 2.5 mg Eptifibatide (Integrilin) 75 mg in 100 mls @ 13.426 mls/hr IV .Q7H27M [facility] Last Admin: 01/21/19 12:27 Dose: 13.426 mls/hr Sodium Chloride (Sodium Chloride 0.9%) 1,000 mls @ 50 mls/hr IV .Q20H [facility] Last Admin: 01/21/19 07:15 Dose: 50 mls/hr Nicotine (Nicoderm Cq) 1 patch TD DAILY [facility] Last Admin: 01/21/19 12:26 Dose: Not Given Rosuvastatin Calcium (Crestor) 10 mg PO HS [facility] Ticagrelor (Brilinta) 90 mg PO BID [facility] Last Admin: 01/21/19 10:56 Dose: 90 mg Physical Exam - Constitutional Appears: No Acute Distress - Head Exam Head Exam: NORMAL INSPECTION - Eye Exam Eye Exam: Normal appearance - ENT Exam ENT Exam: Mucous Membranes Moist - Respiratory Exam Respiratory Exam: Clear to Auscultation Bilateral. absent: Rales, Wheezes - Cardiovascular Exam Cardiovascular Exam: REGULAR RHYTHM, +S1, +S2. absent: Systolic Murmur - GI/Abdominal Exam GI & Abdominal Exam: Normal Bowel Sounds, Soft. absent: Tenderness - Extremities Exam Extremities exam: Positive for: normal capillary refill. Negative for: pedal edema Additional comments: Black toe nails (pt states from shoe dye) - Neurological Exam Neurological exam: Alert, Oriented x3 - Psychiatric Exam Psychiatric exam: Normal Affect - Skin Skin Exam: Normal Color Results - Vital Signs Recent Vital Signs: Last Vital Signs Temp 98.3 F 01/21/19 12:00 Pulse 90 01/21/19 14:00 Resp 10 L 01/21/19 14:00 BP 112/42 L 01/21/19 13:30 Pulse Ox 98 01/21/19 13:30 - Labs Result Diagrams: 01/21/19 03:19 01/21/19 03:19 Labs: Laboratory Results - last 24 hr 01/21/19 01/21/19 01/21/19 02:55 03:00 03:19 WBC 15.4 H D RBC 5.35 Hgb 16.1 Hct 49.2 MCV 91.9 MCH 30.1 MCHC 32.8 L RDW 16.4 H Plt Count 349 MPV 8.7 Neut % (Auto) 87.5 H Lymph % (Auto) 7.4 L Lyman % (Auto) 4.2 Eos % (Auto) 0.5 Baso % (Auto) 0.4 Neut # (Auto) 13.4 H Lymph # (Auto) 1.1 Lyman # (Auto) 0.6 Eos # (Auto) 0.1 Baso # (Auto) 0.1 Neutrophils % (Manual) 86 H Lymphocytes % (Manual) 8 L Monocytes % (Manual) 6 Platelet Estimate Normal PT INR APTT Sodium Potassium Chloride Carbon Dioxide Anion Gap BUN Creatinine Est GFR ( Amer) Est GFR (Non-Af Amer) POC Glucose (mg/dL) 109 Random Glucose Hemoglobin A1c Calcium Magnesium Total Bilirubin AST ALT Alkaline Phosphatase Troponin I NT-Pro-B Natriuret Pep Total Protein Albumin Globulin Albumin/Globulin Ratio Triglycerides Cholesterol LDL Cholesterol Direct HDL Cholesterol TSH 3rd Generation Alcohol, Quantitative Blood Type O POSITIVE Antibody Screen Negative 01/21/19 01/21/19 01/21/19 03:19 03:19 03:19 WBC RBC Hgb Hct MCV MCH MCHC RDW Plt Count MPV Neut % (Auto) Lymph % (Auto) Lyman % (Auto) Eos % (Auto) Baso % (Auto) Neut # (Auto) Lymph # (Auto) Lyman # (Auto) Eos # (Auto) Baso # (Auto) Neutrophils % (Manual) Lymphocytes % (Manual) Monocytes % (Manual) Platelet Estimate PT 12.0 INR 1.1 APTT 28 Sodium 137 Potassium 4.9 Chloride 104 Carbon Dioxide 24 Anion Gap 14 BUN 15 Creatinine 1.1 Est GFR ( Amer) > 60 Est GFR (Non-Af Amer) > 60 POC Glucose (mg/dL) Random Glucose 110 Hemoglobin A1c Calcium 10.1 Magnesium 1.6 Total Bilirubin 0.8 AST 107 H D ALT 74 H Alkaline Phosphatase 52 Troponin I 0.7910 H* NT-Pro-B Natriuret Pep 189 Total Protein 7.3 Albumin 4.1 Globulin 3.2 Albumin/Globulin Ratio 1.3 Triglycerides 102 Cholesterol 143 LDL Cholesterol Direct 116 HDL Cholesterol 21 L TSH 3rd Generation 2.33 Alcohol, Quantitative 18 H Blood Type Antibody Screen 01/21/19 01/21/19 08:32 10:45 WBC RBC Hgb Hct MCV MCH MCHC RDW Plt Count MPV Neut % (Auto) Lymph % (Auto) Lyman % (Auto) Eos % (Auto) Baso % (Auto) Neut # (Auto) Lymph # (Auto) Lyman # (Auto) Eos # (Auto) Baso # (Auto) Neutrophils % (Manual) Lymphocytes % (Manual) Monocytes % (Manual) Platelet Estimate PT INR APTT Sodium Potassium Chloride Carbon Dioxide Anion Gap BUN Creatinine Est GFR ( Amer) Est GFR (Non-Af Amer) POC Glucose (mg/dL) Random Glucose Hemoglobin A1c 4.9 Calcium Magnesium Total Bilirubin AST ALT Alkaline Phosphatase Troponin I 242.0000 H* NT-Pro-B Natriuret Pep Total Protein Albumin Globulin Albumin/Globulin Ratio Triglycerides Cholesterol LDL Cholesterol Direct HDL Cholesterol TSH 3rd Generation Alcohol, Quantitative Blood Type Antibody Screen Assessment & Plan - Assessment and Plan (Free Text) Assessment: Pt is a 58 y/o male hx of active smoker and HTN (not on medication) presented to ED with acute chest pain. Was noted to have wide complex tachycardia on 1st EKG and was cardioverted. Repeat EKG showed demonstrated Inferior wall [place], Troponins 0.79, Code Heart was called, s/p Cardiac Cath with Dr. Raygoza on 01/21. Currently in ICU for cardiac monitoring. Neuro - AO x3 - Pain controlled Cardio - Hemodynamically stable - On initial presentation, was Vtach w/ pulse s/p Cardioversionx1. Briefly on Amiodorine ggt d/c this morning. Currently in sinus rhythm - Rachana Heart: STEMI, s/p Cath on 01/[address] Raygoza. Pending official Cardiac Cath report - Currently on ASA, Carvedilol, Brillinta, Integrillin, ggt, Enalpril, and Crestor - Echo pending - F/U Serial Trops q8H Resp - Active smoker, counseled on cessation, nicotine patches - Cxray suggestive of obstructive lung pattern, Pulmicort and Brovana ordered - Otherwise saturating well on rm air - Supplemental O2 to maintain O2sat>90% Renal - BUN/Crea wnl GI - Mild transaminitis, in the setting of recent alcohol use (ETOH 18). Abd US ordered - Cardiac Diet Heme - H/H and platelets stable - Leukocytosis 15.4 (afebrile) maybe 2/2 to STEMI Endocrine - Hga1C 4.9 PPX -GI Pepcid -DVT ppx: Received Heparin 500 units IV prior to cath Discussed case with Dr. Bill Langley, PGY2 <Seferino Khan S - Last Filed: 01/21/19 16:10> Meds - Medications Medications: Current Medications Albuterol/Ipratropium (Duoneb 3 Mg/0.5 Mg (3 Ml) Ud) 3 ml INH RQ6 PRN PRN Reason: Shortness of Breath Arformoterol Tartrate (Brovana) 15 mcg INH RQ12 [facility] Aspirin (Aspirin Chewable) 81 mg PO DAILY [facility] Last Admin: 01/21/19 10:56 Dose: 81 mg Budesonide (Pulmicort Respules) 0.25 mg INH RQ12 [facility] Carvedilol (Coreg) 3.125 mg PO BID [facility] Last Admin: 01/21/19 10:55 Dose: 3.125 mg Enalapril Maleate (Vasotec) 2.5 mg PO DAILY [facility] Last Admin: 01/21/19 10:55 Dose: 2.5 mg Eptifibatide (Integrilin) 75 mg in 100 mls @ 13.426 mls/hr IV .Q7H27M [facility] Last Admin: 01/21/19 12:27 Dose: 13.426 mls/hr Sodium Chloride (Sodium Chloride 0.9%) 1,000 mls @ 50 mls/hr IV .Q20H [facility] Last Admin: 01/21/19 07:15 Dose: 50 mls/hr Nicotine (Nicoderm Cq) 1 patch TD DAILY [facility] Last Admin: 01/21/19 12:26 Dose: Not Given Rosuvastatin Calcium (Crestor) 10 mg PO HS [facility] Ticagrelor (Brilinta) 90 mg PO BID [facility] Last Admin: 01/21/19 10:56 Dose: 90 mg Results - Vital Signs Recent Vital Signs: Last Vital Signs Temp 99.3 F 01/21/19 16:00 Pulse 77 01/21/19 16:00 Resp 22 01/21/19 16:00 BP 123/76 01/21/19 15:29 Pulse Ox 99 01/21/19 14:36 - Labs Result Diagrams: 01/21/19 03:19 01/21/19 03:19 Labs: Laboratory Results - last 24 hr 01/21/19 01/21/19 01/21/19 02:55 03:00 03:19 WBC 15.4 H D RBC 5.35 Hgb 16.1 Hct 49.2 MCV 91.9 MCH 30.1 MCHC 32.8 L RDW 16.4 H Plt Count 349 MPV 8.7 Neut % (Auto) 87.5 H Lymph % (Auto) 7.4 L Lyman % (Auto) 4.2 Eos % (Auto) 0.5 Baso % (Auto) 0.4 Neut # (Auto) 13.4 H Lymph # (Auto) 1.1 Lyman # (Auto) 0.6 Eos # (Auto) 0.1 Baso # (Auto) 0.1 Neutrophils % (Manual) 86 H Lymphocytes % (Manual) 8 L Monocytes % (Manual) 6 Platelet Estimate Normal PT INR APTT Sodium Potassium Chloride Carbon Dioxide Anion Gap BUN Creatinine Est GFR ( Amer) Est GFR (Non-Af Amer) POC Glucose (mg/dL) 109 Random Glucose Hemoglobin A1c Calcium Magnesium Total Bilirubin AST ALT Alkaline Phosphatase Troponin I NT-Pro-B Natriuret Pep Total Protein Albumin Globulin Albumin/Globulin Ratio Triglycerides Cholesterol LDL Cholesterol Direct HDL Cholesterol TSH 3rd Generation Alcohol, Quantitative Blood Type O POSITIVE Antibody Screen Negative 01/21/19 01/21/19 01/21/19 03:19 03:19 03:19 WBC RBC Hgb Hct MCV MCH MCHC RDW Plt Count MPV Neut % (Auto) Lymph % (Auto) Lyman % (Auto) Eos % (Auto) Baso % (Auto) Neut # (Auto) Lymph # (Auto) Lyman # (Auto) Eos # (Auto) Baso # (Auto) Neutrophils % (Manual) Lymphocytes % (Manual) Monocytes % (Manual) Platelet Estimate PT 12.0 INR 1.1 APTT 28 Sodium 137 Potassium 4.9 Chloride 104 Carbon Dioxide 24 Anion Gap 14 BUN 15 Creatinine 1.1 Est GFR ( Amer) > 60 Est GFR (Non-Af Amer) > 60 POC Glucose (mg/dL) Random Glucose 110 Hemoglobin A1c Calcium 10.1 Magnesium 1.6 Total Bilirubin 0.8 AST 107 H D ALT 74 H Alkaline Phosphatase 52 Troponin I 0.7910 H* NT-Pro-B Natriuret Pep 189 Total Protein 7.3 Albumin 4.1 Globulin 3.2 Albumin/Globulin Ratio 1.3 Triglycerides 102 Cholesterol 143 LDL Cholesterol Direct 116 HDL Cholesterol 21 L TSH 3rd Generation 2.33 Alcohol, Quantitative 18 H Blood Type Antibody Screen 01/21/19 01/21/19 08:32 10:45 WBC RBC Hgb Hct MCV MCH MCHC RDW Plt Count MPV Neut % (Auto) Lymph % (Auto) Lyman % (Auto) Eos % (Auto) Baso % (Auto) Neut # (Auto) Lymph # (Auto) Lyman # (Auto) Eos # (Auto) Baso # (Auto) Neutrophils % (Manual) Lymphocytes % (Manual) Monocytes % (Manual) Platelet Estimate PT INR APTT Sodium Potassium Chloride Carbon Dioxide Anion Gap BUN Creatinine Est GFR ( Amer) Est GFR (Non-Af Amer) POC Glucose (mg/dL) Random Glucose Hemoglobin A1c 4.9 Calcium Magnesium Total Bilirubin AST ALT Alkaline Phosphatase Troponin I 242.0000 H* NT-Pro-B Natriuret Pep Total Protein Albumin Globulin Albumin/Globulin Ratio Triglycerides Cholesterol LDL Cholesterol Direct HDL Cholesterol TSH 3rd Generation Alcohol, Quantitative Blood Type Antibody Screen Attending/Attestation - Attestation I have personally seen and examined this patient.: Yes I have fully participated in the care of the patient.: Yes I have reviewed all pertinent clinical information: Yes Notes (Text): 01/21/19 16:09 Patient seen and examined in the intensive care unit. ST elevation [place] status post cardiac cath and stent placement On Integrilin drip Continue Brilinta and aspirin Echocardiogram Continue ICU observation
--- NOTE | 2019-01-21 20:55 | CATH ---
APPROVED REPORT Date of service: 01/21/2019 Procedure(s) performed: Cardiac catheterization with Angioplasty and Stenting of LCx. HISTORY The patient is a 58 year-old male with a history of : tobacco history() , dyslipidemia. INDICATION The indication(s) include : STEMI . CASE TECHNIQUE The patient was brought emergently to the Cardiac Catheterization Laboratory in a fasting state and was prepped and draped in a sterile manner. The right femoral groin was infiltrated with 2% Lidocaine subcutaneous anesthesia. The left coronary system was accessed and visualized with a Guided catheter. The right coronary system was accessed and visualized with a Guided catheter. The left ventricle was accessed and visualized with a Diagnostic catheter. Left ventricular/Aortic Valve gradient assessed on pullback. Left ventriculogram was performed in PRIDE projection. Closure device was deployed with a 6 Fr Angioseal without any complications. The left main coronary artery is a medium size vessel with stenosis 60-70% in the mid segment.. The left main bifurcates to the left anterior descending and circumflex. The left anterior descending artery is a mediummedium size vessel . There is a % stenosis . 60-70% stenosis in the mid segent The first diagonal branch is a small size vessel . There is a 90% stenosis in the ostial segment. The second diagonal branch is a small size vessel . There is a 90% stenosis in the ostial segment. The circumflex artery is a medium size vessel . There is a 100% stenosis in the mid segment. there is another 95% stenosis in the very distal segment The right coronary artery is a small size vessel free of disease. Left Ventricle The left ventricle is normal in size with decrease contractility. The left ventricular ejection fraction is estimated to be 40%. The left ventricular end diastolic pressure is 17 mmHg. PCI Technique Lesion Anticoagulation was achieved with Heparin. Percutaneous coronary intervention was performed on the mid circumflex artery segment. The lesion stenosis prior to intervention was 100% with GARCIA 0 flow. A 6F XB 3.5 Guide Catheter was used to engage the L M ostium. BALLOON DILATION A Balloon catheter 2.5X12 was inserted and inflated up to 10atm for 30seconds. STENT DEPLOYMENT A drug-eluting stent 2.5X15 was inserted and inflated up to 12atm for 30seconds. Final angiography reveals 0 % stenosis with GARCIA 3 flow. Conclusion Multi-vessel disease. Mild LV systolic dysfunction Successfult Angioplasty and stent of mid 100% LCx performed. Post procedure 0% residual stenosis. Recommendations Smoking Cessation Daily ASA with Plavix for at least one year Cardiac Risk Reduction Program
[2019-01-22] MEDS: Sodium Chloride 0.9% 1,000 ML IV SCH ×2 (01:09→07:18)
[2019-01-22 06:17] LABS: EOS # 0.3 K/uL (0.0-0.7); EOS % 2.6 % (0.0-4.0); MEAN CORPUSCULAR HGB CONC 33.2 g/dL (33.0-37.0); MEAN PLATELET VOLUME 8.7 fL (7.2-11.7); MONO # 0.9 K/uL (0.0-0.8)
[2019-01-22 06:21] LABS: BASO % 0.4 % (0.0-2.0); HEMOGLOBIN 15.1 g/dL (12.0-18.0); LYMPH # 1.7 K/uL (1.0-4.3); LYMPH % 13.8 % (20.0-40.0); MEAN CELL VOLUME 92.7 fL (80.0-94.0); MEAN CORPUSCULAR HEMOGLOBIN 30.8 pg (27.0-31.0); MONO % 6.9 % (0.0-10.0); NEUT # 9.5 K/uL (1.8-7.0); NEUT % 76.3 % (50.0-75.0); RBC 4.92 Mil/uL (4.40-5.90); RED CELL DISTRIBUTION WIDTH 16.5 % (11.5-14.5); WHITE BLOOD COUNT 12.4 K/uL (4.8-10.8)
[2019-01-22 06:38] LABS: ALB/GLOB RATIO 1.2 (1.0-2.1); ALBUMIN 3.2 g/dL (3.5-5.0); ALT/SGPT 123 U/L (21-72); AST/SGOT 698 U/L (17-59); BLOOD UREA NITROGEN 13 mg/dL (9-20); GFR NON-AFRICAN AMERICAN > 60
[2019-01-22] MEDS ORDERED: Arformoterol 15 mcg/2 ml Inh Sol INH SCH (08:00)
[2019-01-22] MEDS: Budesonide 0.25 mg/2 ml Inhal Susp UD INH SCH ×2 (08:00→19:28)
[2019-01-22] MEDS: Albuterol-Ipratrop 3 mg / 0.5 (3 ml) UD INH PRN ×2 (08:00→19:28)
--- NOTE | 2019-01-22 10:51 | CARD ---
APPROVED REPORT Date of service: 01/21/2019 EXAM: Two-dimensional and M-mode echocardiogram with Doppler and color Doppler. INDICATION Chest Pain tachy, stemi RISK FACTORS Smoking 2D DIMENSIONS IVSd1.0 (0.7-1.1cm)LVDd4.9 (3.9-5.9cm) PWd1.2 (0.7-1.1cm)LA Nvoubw27 (18-58mL) LVDs4.2 (2.5-4.0cm)FS (%) 15.8 % LVEF (%)33.2 (>50%)LVEF (Bernard's)55.57 % M-Mode DIMENSIONS Left Atrium (MM)4.79 (2.5-4.0cm)IVSd1.25 (0.7-1.1cm) Aortic Root3.76 (2.2-3.7cm)LVDd5.60 (4.0-5.6cm) Aortic Cusp Exc.2.22 (1.5-2.0cm)PWd1.34 (0.7-1.1cm) FS (%) 33 %LVDs3.78 (2.0-3.8cm) LVEF (%)60 (>50%) Mitral Valve MV E Bbpsnfmm057.4cm/sMV A Pzaqsqnb81.4cm/sE/A ratio1.3 TDI Lateral E' Peak V4.80cm/sMedial E' Peak V6.61cm/sE/Lateral E'22.6 E/Medial E'16.4 Tricuspid Valve TR Peak Updxhdcq144mw/sTR Peak Gr.[id number] <Conclusion> Left ventricle: thickness: normal; size: normal;inferior hypokinesis overall ejection fraction: 65%: diastolic filling pressures:elevated Mitral valve: annulus: normal: leaflets: normal: excursion: normal; no significant trans-mitral gradient: mild incompetence: left atrium: normal Aortic valve: leaflets: normal: excursion: normal; no significant trans-aortic gradient: No significant incompetence: aortic root: normal Right sided Structures: Pulmonary valve: normal; no significant incompetence; Tricuspid valve: normal; mild incompetence: prominent eustachian valve Intra-cardiac hemodynamics: pulmonary systolic pressures: normal; central venous pressures: normal No pericardial effusion
[2019-01-22 13:19] VITALS: RESP 20
--- NOTE | 2019-01-22 18:38 | CP.PCM.PN ---
Subjective - Date & Time of Evaluation Date of Evaluation: 01/22/19 Time of Evaluation: 11:30 - Subjective Subjective: Hospitalist Progress Note Patient was seen and examined in the ICU Bed 7 at 11:30 AM 01/22/19 58 year old male who is S/P Cardiac Catheterization with stent placement in the Left Circumflex S/P Code Heart. Please see Assessment and Plans below for details. 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 absent: Rales, Rhonchi, Wheezes - Cardiovascular Exam Cardiovascular Exam: REGULAR RHYTHM, +S1, +S2, NO M/R/G - GI/Abdominal Exam GI & Abdominal Exam: Soft, Normal Bowel Sounds. absent: Distended, Firm, Guarding, Rigid, Tenderness, Rebound - Extremities Exam Extremities Exam: Pulses are strong and and equal, NO edema, Capillar refill is 2 seconds. absent: Pedal Edema, Tenderness Additional comments: nails of the bilateral feet show discoloration that is dark blue/green in color: patient states that he was wearing new [employer] that became wet while at work roughly 1 week ago and this caused discoloration of his toe nails - Neurological Exam Neurological Exam: Alert, Awake, Oriented x3, CN II through XII are grossly intact - Psychiatric Exam Psychiatric exam: Normal Affect, Normal Mood - Skin Skin Exam: Dry, Intact, Normal Color, Warm, Catheterization access site in the Right Groin shows some bruising but NO tenderness to palpation and NO hardness to palpation with NO evidence of any surrounding cellulitis Assessment and Plan (1) Acute inferior myocardial infarction Assessment & Plan: Cardiology (Dr. Raygoza) on case-->help appreciated Code heart Aspirin 81mg PO daily Coreg 3.125mg PO BID Integriln drip was discontinued Crestor 10 mg PO QHS is on HOLD secondary to Transaminits Brilinta 90mg PO BID which will need to be changed to Plavix 75 mg PO 1x/day as patient stated that he would not be able to afford the Brilinta Cardiac Catheterization lead to stenting of the Left Circumflex artery and showed evidence of 60-70% stenosis of the Left Main Artery Echocardiogram 01/22/19: showed EF estimation at 65% and Inferior Hypokinesis GARCIA: male, hypertension, smoker, and family history of LA (father age 55) EKG: inferior wall LA +troponin HbGA1C: 4.9 Lipid panel: LDL at 116, HDL at 21, Triglycerides at 102, Total Cholesterol at 143 TSH: 2.33 UDS is still pending despite being ordered by the ER upon admission. Nursing communication sent to get it done. Status: Acute (2) Alcohol use Assessment & Plan: Admits to 1-2 shots of beer occasional Elevated alcohol on admission Patient does not appear in withdrawal at time of exam Status: Chronic (3) Family history of LA (myocardial infarction) Assessment & Plan: Father at age 55 Status: Chronic (4) Hypertension Assessment & Plan: Coreg 3.125mg PO BID Status: Chronic (5) Smoker Assessment & Plan: Smoking cessation advised and we will need to provide him with [place] Quitline information upon discharge Nictone patch 14 mg TD 1x/day Status: Chronic (6) Obesity Assessment & Plan: Patient Registration Manager referral Advocated for plant based or Mediterranean diet Status: Chronic (7) Transaminitis Assessment & Plan: Check Hepatitis panel and HIV Check Abdominal US Likely secondary to shock liver from the Vtach/Vfib Holdig Statin at this time Status: Acute (8) Leukocytosis Assessment & Plan: Check blood cultures and urine culture Possible inflammatory secondary to LA NO fevers Trending down at this time Status: Acute (9) Discolored nails Assessment & Plan: Podiatry consult Patient reports it is dye from nails from [employer] (please see skin exam above) Status: Acute (10) Prophylactic measure Assessment & Plan: Bilateral SCDs Heparin 5,000 Units SC Q8H Heart Healthy Diet Status: Acute Disposition: As long as LFTs trending down and no more episodes of chest pain and cleared by Cardiology, will discharge patient. Jose Terry D.O. Objective - Vital Signs/Intake and Output Vital Signs (last 24 hours): Temp Pulse Resp BP Pulse Ox 98.7 F 80 20 128/75 97 01/22/19 15:00 01/22/19 16:15 01/22/19 15:00 01/22/19 15:00 01/22/19 15:00 Intake and Output: 01/22/19 01/22/19 06:59 18:59 Intake Total 1230.2 620 Output Total 1900 800 Balance -669.8 -180 - Medications Medications: Current Medications Albuterol/Ipratropium (Duoneb 3 Mg/0.5 Mg (3 Ml) Ud) 3 ml INH RQ6 PRN PRN Reason: Shortness of Breath Last Admin: 01/22/19 08:00 Dose: 3 ml Arformoterol Tartrate (Brovana) 15 mcg INH RQ12 [facility] Aspirin (Aspirin Chewable) 81 mg PO DAILY [facility] Last Admin: 01/22/19 09:34 Dose: 81 mg Budesonide (Pulmicort Respules) 0.25 mg INH RQ12 [facility] Last Admin: 01/22/19 08:00 Dose: 0.25 mg Carvedilol (Coreg) 3.125 mg PO BID [facility] Last Admin: 01/22/19 18:16 Dose: 3.125 mg Enalapril Maleate (Vasotec) 2.5 mg PO DAILY [facility] Last Admin: 01/22/19 09:34 Dose: 2.5 mg Nicotine (Nicoderm Cq) 1 patch TD DAILY [facility] Last Admin: 01/22/19 09:54 Dose: Not Given Rosuvastatin Calcium (Crestor) 10 mg PO HS [facility] Last Admin: 01/21/19 22:44 Dose: 10 mg Ticagrelor (Brilinta) 90 mg PO BID [facility] Last Admin: 01/22/19 18:16 Dose: 90 mg - Labs Labs: 01/22/19 06:06 01/22/19 06:06 PT 12.0 SECONDS (9.7-12.2) 01/21/19 03:19 INR 1.1 01/21/19 03:19 APTT 28 SECONDS (21-34) 01/21/19 03:19
[2019-01-22 21:35] LABS: SQUAMOUS EPITHIAL < 1 /hpf (0-5); URINE BILIRUBIN NEGATIVE (NEGATIVE); URINE BLOOD NEGATIVE (NEGATIVE); URINE CLARITY Clear (Clear); URINE COLOR Yellow (YELLOW); URINE GLUCOSE (UA) NORMAL (Normal); URINE LEUKOCYTE ESTERASE NEG Leu/uL (Negative); URINE PROTEIN NEGATIVE (NEGATIVE)
[2019-01-22 21:53] LABS: BENZODIAZEPINES, UR NEGATIVE (NEGATIVE); OPIATES, UR NEGATIVE (NEGATIVE); PHENCYCLIDINE, UR NEGATIVE (NEGATIVE)
[2019-01-22 21:57] LABS: BARBITURATES, UR POSITIVE (NEGATIVE)
[2019-01-22 22:13] LABS: HEPATITIS B SURFACE AG Negative (NEGATIVE)
[2019-01-22 22:19] LABS: HEPATITIS A IGM NEGATIVE (NEGATIVE); HEPATITIS B CORE AB NEGATIVE (NEGATIVE)
[2019-01-22 22:39] LABS: HEPATITIS C ANTIBODY REACTIVE (NEGATIVE)
--- NOTE | 2019-01-23 00:06 | CARD ---
APPROVED REPORT Date of service: 01/21/2019 EKG Measurement Heart [id number] <Conclusion> Normal sinus rhythm Inferior-posterior infarct, acute ACUTE GA / STEMI Consider right ventricular involvement in acute inferior infarct Abnormal ECG
--- NOTE | 2019-01-23 00:07 | CARD ---
APPROVED REPORT Date of service: 01/21/2019 EKG Measurement Heart [id number] <Conclusion> Ventricular tachycardia in the setting of acute [place] Abnormal ECG
[2019-01-23] MEDS: Budesonide 0.25 mg/2 ml Inhal Susp UD INH SCH (07:11)
--- NOTE | 2019-01-23 07:20 | CP.PCM.PN ---
Subjective - Date & Time of Evaluation Date of Evaluation: 01/23/19 Time of Evaluation: 07:20 Objective - Vital Signs/Intake and Output Vital Signs (last 24 hours): Temp Pulse Resp BP Pulse Ox 99 F 71 20 122/67 96 01/22/19 23:35 01/23/19 01:13 01/22/19 23:35 01/22/19 23:35 01/22/19 23:35 - Medications Medications: Current Medications Albuterol/Ipratropium (Duoneb 3 Mg/0.5 Mg (3 Ml) Ud) 3 ml INH RQ6 PRN PRN Reason: Shortness of Breath Last Admin: 01/22/19 19:28 Dose: 3 ml Arformoterol Tartrate (Brovana) 15 mcg INH RQ12 [facility] Last Admin: 01/23/19 07:11 Dose: Not Given Aspirin (Aspirin Chewable) 81 mg PO DAILY [facility] Last Admin: 01/22/19 09:34 Dose: 81 mg Budesonide (Pulmicort Respules) 0.25 mg INH RQ12 [facility] Last Admin: 01/23/19 07:11 Dose: 0.25 mg Carvedilol (Coreg) 3.125 mg PO BID [facility] Last Admin: 01/22/19 18:16 Dose: 3.125 mg Enalapril Maleate (Vasotec) 2.5 mg PO DAILY [facility] Last Admin: 01/22/19 09:34 Dose: 2.5 mg Heparin Sodium (Porcine) (Heparin) 5,000 units SC Q8 [facility] Last Admin: 01/23/19 06:50 Dose: Not Given Nicotine (Nicoderm Cq) 1 patch TD DAILY [facility] Last Admin: 01/22/19 09:54 Dose: Not Given Rosuvastatin Calcium (Crestor) 10 mg PO HS [facility] Last Admin: 01/21/19 22:44 Dose: 10 mg Ticagrelor (Brilinta) 90 mg PO BID [facility] Last Admin: 01/22/19 18:16 Dose: 90 mg - Labs Labs: 01/22/19 06:06 01/22/19 06:06 PT 12.0 SECONDS (9.7-12.2) 01/21/19 03:19 INR 1.1 01/21/19 03:19 APTT 28 SECONDS (21-34) 01/21/19 03:19 Assessment and Plan - Assessment and Plan (Free Text) Plan: Assessment and Plan (1) Acute inferior myocardial infarction Assessment & Plan: Cardiology (Dr. Raygoza) on case-->help appreciated Code heart Aspirin 81mg PO daily Coreg 3.125mg PO BID Integriln drip was discontinued Crestor 10 mg PO QHS is on HOLD secondary to Transaminits Brilinta 90mg PO BID which will need to be changed to Plavix 75 mg PO 1x/day as patient stated that he would not be able to afford the Brilinta Cardiac Catheterization lead to stenting of the Left Circumflex artery and showed evidence of 60-70% stenosis of the Left Main Artery Echocardiogram 01/22/19: showed EF estimation at 65% and Inferior Hypokinesis GARCIA: male, hypertension, smoker, and family history of [place] (father age 55) EKG: inferior wall [place] +troponin HbGA1C: 4.9 Lipid panel: LDL at 116, HDL at 21, Triglycerides at 102, Total Cholesterol at 143 TSH: 2.33 UDS is still pending despite being ordered by the ER upon admission. Nursing communication sent to get it done. Status: Acute (2) Alcohol use Assessment & Plan: Admits to 1-2 shots of beer occasional Elevated alcohol on admission Patient does not appear in withdrawal at time of exam Status: Chronic (3) Family history of [place] (myocardial infarction) Assessment & Plan: Father at age 55 Status: Chronic (4) Hypertension Assessment & Plan: Coreg 3.125mg PO BID Status: Chronic (5) Smoker Assessment & Plan: Smoking cessation advised and we will need to provide him with [place] Quitline information upon discharge Nictone patch 14 mg TD 1x/day Status: Chronic (6) Obesity Assessment & Plan: Cabinet Assembler referral Advocated for plant based or Mediterranean diet Status: Chronic (7) Transaminitis Assessment & Plan: Check Hepatitis panel and HIV Check Abdominal US Likely secondary to shock liver from the Vtach/Vfib Holdig Statin at this time Status: Acute (8) Leukocytosis Assessment & Plan: Check blood cultures and urine culture Possible inflammatory secondary to [place] NO fevers Trending down at this time Status: Acute (9) Discolored nails Assessment & Plan: Podiatry consult Patient reports it is dye from nails from [employer] (please see skin exam above) Status: Acute (10) Prophylactic measure Assessment & Plan: Bilateral SCDs Heparin 5,000 Units SC Q8H Heart Healthy Diet Status: Acute Disposition: As long as LFTs trending down and no more episodes of chest pain and cleared by Cardiology, will discharge patient.
[2019-01-23 07:27] LABS: BASO # 0.1 K/uL (0.0-0.2); BASO % 0.6 % (0.0-2.0); EOS # 0.3 K/uL (0.0-0.7); EOS % 3.3 % (0.0-4.0); HEMOGLOBIN 14.9 g/dL (12.0-18.0); LYMPH # 1.4 K/uL (1.0-4.3); LYMPH % 14.6 % (20.0-40.0); MEAN CELL VOLUME 92.9 fL (80.0-94.0); MEAN CORPUSCULAR HEMOGLOBIN 31.1 pg (27.0-31.0); MEAN CORPUSCULAR HGB CONC 33.5 g/dL (33.0-37.0); MEAN PLATELET VOLUME 8.7 fL (7.2-11.7); MONO # 0.8 K/uL (0.0-0.8); MONO % 9.1 % (0.0-10.0); NEUT # 6.8 K/uL (1.8-7.0); NEUT % 72.4 % (50.0-75.0); NRBC % 0.1 % (0.0-2.0); RBC 4.8 Mil/uL (4.40-5.90); RED CELL DISTRIBUTION WIDTH 16.1 % (11.5-14.5); WHITE BLOOD COUNT 9.3 K/uL (4.8-10.8)
--- NOTE | 2019-01-23 07:28 | CP.PCM.DIS ---
<Emma Lee P - Last Filed: 01/23/19 21:11> Provider - Provider Date of Admission: 01/21/19 04:29 Attending physician: Rylan Del Rosario MD Consults: 01/21/19 07:30 Cardiology Consult Routine Comment: Consulting Provider: Fracisco Raygoza Consulting Physician: Fracisco Raygoza Reason for Consult: code heart 01/21/19 09:49 Podiatry Consult Routine Comment: call podiatry resident Consulting Provider: Kassandra Starr Consulting Physician: Kassandra Starr Reason for Consult: dystrophic, discolorer nails Time Spent in preparation of Discharge (in minutes): 40 Diagnosis - Discharge Diagnosis (1) Acute inferior myocardial infarction Status: Acute Hospital Course - Lab Results Lab Results: Micro Results 01/21/19 06:48 Nose MRSA Culture (Admit) - Final MRSA NOT DETECTED 01/21/19 10:45 Blood Blood Culture - Preliminary NO GROWTH AFTER 24 HOURS 01/21/19 10:45 Blood Blood Culture - Preliminary NO GROWTH AFTER 24 HOURS 01/21/19 14:28 Urine,Catheterized Urine Culture - Final No Growth (<1,000 CFU/ML) Most Recent Lab Values WBC 12.4 K/uL (4.8-10.8) H 01/22/19 06:06 RBC 4.92 Mil/uL (4.40-5.90) 01/22/19 06:06 Hgb 15.1 g/dL (12.0-18.0) 01/22/19 06:06 Hct 45.6 % (35.0-51.0) 01/22/19 06:06 MCV 92.7 fL (80.0-94.0) 01/22/19 06:06 MCH 30.8 pg (27.0-31.0) 01/22/19 06:06 MCHC 33.2 g/dL (33.0-37.0) 01/22/19 06:06 RDW 16.5 % (11.5-14.5) H 01/22/19 06:06 Plt Count 333 K/uL (130-400) 01/22/19 06:06 MPV 8.7 fL (7.2-11.7) 01/22/19 06:06 Neut % (Auto) 76.3 % (50.0-75.0) H 01/22/19 06:06 Lymph % (Auto) 13.8 % (20.0-40.0) L 01/22/19 06:06 [place] % (Auto) 6.9 % (0.0-10.0) 01/22/19 06:06 Eos % (Auto) 2.6 % (0.0-4.0) 01/22/19 06:06 Baso % (Auto) 0.4 % (0.0-2.0) 01/22/19 06:06 Neut # (Auto) 9.5 K/uL (1.8-7.0) H 01/22/19 06:06 Lymph # (Auto) 1.7 K/uL (1.0-4.3) 01/22/19 06:06 [place] # (Auto) 0.9 K/uL (0.0-0.8) H 01/22/19 06:06 Eos # (Auto) 0.3 K/uL (0.0-0.7) 01/22/19 06:06 Baso # (Auto) 0.0 K/uL (0.0-0.2) 01/22/19 06:06 Neutrophils % (Manual) 86 % (50-75) H 01/21/19 03:19 Lymphocytes % (Manual) 8 % (20-40) L 01/21/19 03:19 Monocytes % (Manual) 6 % (0-10) 01/21/19 03:19 Platelet Estimate Normal (NORMAL) 01/21/19 03:19 PT 12.0 SECONDS (9.7-12.2) 01/21/19 03:19 INR 1.1 01/21/19 03:19 APTT 28 SECONDS (21-34) 01/21/19 03:19 Sodium 131 mmol/L (132-148) L 01/22/19 06:06 Potassium 4.8 mmol/L (3.6-5.2) 01/22/19 06:06 Chloride 101 mmol/L (98-107) 01/22/19 06:06 Carbon Dioxide 25 mmol/L (22-30) 01/22/19 06:06 Anion Gap 9 (10-20) L 01/22/19 06:06 BUN 13 mg/dL (9-20) 01/22/19 06:06 Creatinine 0.8 mg/dL (0.8-1.5) 01/22/19 06:06 Est GFR ( Amer) > 60 01/22/19 06:06 Est GFR (Non-Af Amer) > 60 01/22/19 06:06 POC Glucose (mg/dL) 109 mg/dL (65-110) 01/21/19 03:00 Random Glucose 92 mg/dL (75-110) 01/22/19 06:06 Hemoglobin A1c 4.9 % (4.2-6.5) 01/21/19 08:32 Calcium 8.0 mg/dl (8.6-10.4) L 01/22/19 06:06 Phosphorus 2.5 mg/dL (2.5-4.5) 01/22/19 06:06 Magnesium 1.7 mg/dL (1.6-2.3) 01/22/19 06:06 Total Bilirubin 1.1 mg/dL (0.2-1.3) 01/22/19 06:06 AST 698 U/L (17-59) H D 01/22/19 06:06 ALT 123 U/L (21-72) H D 01/22/19 06:06 Alkaline Phosphatase 35 U/L (38-126) L D 01/22/19 06:06 Troponin I 175.0000 ng/mL (0.00-0.120) H* 01/21/19 18:42 NT-Pro-B Natriuret Pep 189 pg/mL (0-900) 01/21/19 03:19 Total Protein 5.9 g/dL (6.3-8.3) L 01/22/19 06:06 Albumin 3.2 g/dL (3.5-5.0) L D 01/22/19 06:06 Globulin 2.7 gm/dL (2.2-3.9) 01/22/19 06:06 Albumin/Globulin Ratio 1.2 (1.0-2.1) 01/22/19 06:06 Triglycerides 102 mg/dL (0-149) 01/21/19 03:19 Cholesterol 143 mg/dL (0-199) 01/21/19 03:19 LDL Cholesterol Direct 116 mg/dL (0-129) 01/21/19 03:19 HDL Cholesterol 21 mg/dL (30-70) L 01/21/19 03:19 TSH 3rd Generation 2.33 mIU/L (0.46-4.68) 01/21/19 03:19 Urine Color Yellow (YELLOW) 01/22/19 21:19 Urine Clarity Clear (Clear) 01/22/19 21: Urine pH 7.0 (5.0-8.0) 01/22/19 21: Ur Specific [place] 1.011 (1.003-1.030) 01/22/19 21:19 Urine Protein Negative mg/dL (NEGATIVE) 01/22/19 21: Urine Glucose (UA) Normal mg/dL (Normal) 01/22/19 21: Urine Ketones Negative mg/dL (NEGATIVE) 01/22/19 21: Urine Blood Negative (NEGATIVE) 01/22/19 21: Urine Nitrate Negative (NEGATIVE) 01/22/19 21: Urine Bilirubin Negative (NEGATIVE) 01/22/19 21: Urine Urobilinogen 4.0 mg/dL (0.2-1.0) 01/22/19 21:19 Ur Leukocyte Esterase Neg Ruma/uL (Negative) 01/22/19 21: Urine WBC (Auto) < 1 /hpf (0-5) 01/22/19 21: Urine RBC (Auto) 2 /hpf (0-3) 01/22/19 21:19 Ur Squamous Epith Cells < 1 /hpf (0-5) 01/22/19 21:19 Urine Opiates Screen Negative (NEGATIVE) 01/22/19 21: Urine Methadone Screen Negative (NEGATIVE) 01/22/19 21: Ur Barbiturates Screen Positive (NEGATIVE) H 01/22/19 21:19 Ur Phencyclidine Scrn Negative (NEGATIVE) 01/22/19 21: Ur Amphetamines Screen Negative (NEGATIVE) 01/22/19 21: U Benzodiazepines Scrn Negative (NEGATIVE) 01/22/19 21: U Oth Cocaine Metabols Positive (NEGATIVE) H 01/22/19 21: U Cannabinoids Screen Negative (NEGATIVE) 01/22/19 21:19 Alcohol, Quantitative 18 mg/dl (0-10) H 01/21/19 03:19 Hepatitis A IgM Ab Negative (NEGATIVE) 01/22/19 21:19 Hep Bs Antigen Negative (NEGATIVE) 01/22/19 21:19 Hep B Core IgM Ab Negative (NEGATIVE) 01/22/19 21:19 Hepatitis C Antibody Reactive (NEGATIVE) 01/22/19 21:19 HIV 1&2 Antibody Screen Negative (NEGATIVE) 01/22/19 21:19 Blood Type O POSITIVE 01/21/19 02:55 Antibody Screen Negative 01/21/19 02:55 - Hospital Course Hospital Course: On admission: 58 year old male with unknown PMH was BIBA for sudden onset chest pain approximately 1 hour [place]. He was found to be in wide complex tachycardia en route. Repeat EKG in ED showed wide complex tachycardia. He was given high dose ASA, 3mg midazolam and cardioverted in the ED. Post cardioversion, repeat EKG showed STEMI in inferior leads and Code Heart called. Unable to obtain further history since patient was not verbally responsive at that time. Hospitalization: Assessment and Plan (1) Acute inferior myocardial infarction Assessment & Plan: Cardiology (Dr. Raygoaz) on case-->help appreciated Code heart Aspirin 81mg PO daily Coreg 3.125mg PO BID Integriln drip was discontinued Crestor 10 mg PO QHS is on HOLD secondary to Transaminits Brilinta 90mg PO BID which will need to be changed to Plavix 75 mg PO 1x/day as patient stated that he would not be able to afford the Brilinta Cardiac Catheterization lead to stenting of the Left Circumflex artery and showed evidence of 60-70% stenosis of the Left Main Artery Echocardiogram 01/22/19: showed EF estimation at 65% and Inferior Hypokinesis GARCIA: male, hypertension, smoker, and family history of [place] (father age 55) EKG: inferior wall [place] +troponin HbGA1C: 4.9 Lipid panel: LDL at 116, HDL at 21, Triglycerides at 102, Total Cholesterol at 143 TSH: 2.33 UDS is still pending despite being ordered by the ER upon admission. Nursing communication sent to get it done. Status: Acute (2) Alcohol use Assessment & Plan: Admits to 1-2 shots of beer occasional Elevated alcohol on admission Patient does not appear in withdrawal at time of exam Status: Chronic (3) Family history of [place] (myocardial infarction) Assessment & Plan: Father at age 55 Status: Chronic (4) Hypertension Assessment & Plan: Coreg 3.125mg PO BID Status: Chronic (5) Smoker Assessment & Plan: Smoking cessation advised and we will need to provide him with [place] Quitline information upon discharge Nictone patch 14 mg TD 1x/day Status: Chronic (6) Obesity Assessment & Plan: Battery Engineer referral Advocated for plant based or Mediterranean diet Status: Chronic (7) Transaminitis Assessment & Plan: Check Hepatitis panel and HIV Check Abdominal US Likely secondary to shock liver from the Vtach/Vfib Holdig Statin at this time Status: Acute (8) Leukocytosis Assessment & Plan: Check blood cultures and urine culture Possible inflammatory secondary to [place] NO fevers Trending down at this time Status: Acute (9) Discolored nails Assessment & Plan: Podiatry consult Patient reports it is dye from nails from [employer] (please see skin exam above) Status: Acute (10) Prophylactic measure Assessment & Plan: Bilateral SCDs Heparin 5,000 Units SC Q8H Heart Healthy Diet Status: Acute Disposition: As long as LFTs trending down and no more episodes of chest pain and cleared by Cardiology, will discharge patient. Discharge: Patient is stable for discharge as per Dr. Terry. You must follow up with your PMD, Dr. Rice for continuation of your care. You must obtain a referral to see Dr. Raygoza, laminate floor installer. Call [phone] to make an appointment. You must see Dr. Raygoza within one week. Dr. Raygoza will follow you after your heart attack and give clearance for regular activities and work- You are not cleared for these activities until you see Dr. Raygoza. You will need referral to oncology physician assistant for testing to see if you have COPD or emphysema. You will need a referral from Dr. Rice to a regional education coordinator to follow up your Hepatitis C. You are to stop taking viagra. You must stop using cocaine as it increases your chances of another heart attack. You are to attend meetings daily- Call [phone] to set this up. You must stop smoking. You may buy nicotine patches over the counter to help you quit smoking. Call [place] quit line to help you stop [phone]. You are being discharged on the following medication: -Albuterol inhaler 90mcg/actuation 2 puffs every 6 hours as needed for shortness of breath -Aspirin 81mg once a day at 8am -Coreg 3.125 twice daily at 8am and 8pm -Clopidogrel 75mg daily 8am -Atorvastatin 40mg daily at 8pm -Enalapril 2.5mg daily at 2pm Return to the emergency for new or worsening symptoms. Discharge Exam - Head Exam Head Exam: NORMAL INSPECTION - Eye Exam Eye Exam: EOMI, Normal appearance, PERRL - ENT Exam ENT Exam: Mucous Membranes Moist - Neck Exam Neck exam: Full Rom, Normal Inspection - Respiratory Exam Respiratory Exam: Clear to PA & Lateral, NORMAL BREATHING PATTERN. absent: Rales, Rhonchi, Wheezes - Cardiovascular Exam Cardiovascular Exam: REGULAR RHYTHM, +S1, +S2 - GI/Abdominal Exam GI & Abdominal Exam: Normal Bowel Sounds, Soft. absent: Distended, Firm, Guarding, Rigid, Tenderness - Extremities Exam Extremities exam: full ROM Additional comments: black toes from shoe dye - Neurological Exam Neurological exam: Alert, CN II-XII Intact, Oriented x3 - Psychiatric Exam Psychiatric exam: Normal Affect, Normal Mood - Skin Skin Exam: Dry, Intact, Warm Discharge Plan - Discharge Medications Prescriptions: Albuterol HFA [Ventolin HFA 90 mcg/actuation (8 g)] 2 puff IH [id number] PRN #1 inhaler PRN Reason: Shortness Of Breath Aspirin [Aspirin Chewable] 81 mg PO DAILY #30 chew Atorvastatin [Lipitor] 40 mg PO DAILY #30 tab Carvedilol [Coreg] 3.125 mg PO BID #60 tab Clopidogrel Bisulfate [Plavix] 75 mg PO DAILY #30 tablet Enalapril Maleate [Vasotec] 2.5 mg PO DAILY #30 tab - Follow Up Plan Condition: CRITICAL Disposition: HOME/ ROUTINE Instructions: Smoking: Not Just Harmful to Your Lungs and Heart, DASH Diet, High Blood Pressure (DC), Heart Attack (DC), Quitting Smoking, Albuterol, Aspirin, Atorvastatin, Carvedilol, Clopidogrel, Enalapril Additional Instructions: Patient is stable for discharge as per Dr. Terry. You must follow up with your PMD, Dr. Rice for continuation of your care. You must obtain a referral to see Dr. Raygoza, laminate floor installer. Call [phone] to make an appointment. You must see Dr. Raygoza within one week. Dr. Raygoza will follow you after your heart attack and give clearance for regular activities and work- You are not cleared for these activities until you see Dr. Raygoza. You will need referral to oncology physician assistant for testing to see if you have COPD or emphysema. You will need a referral from Dr. Rice to a regional education coordinator to follow up your Hepatitis C. You are to stop taking viagra. You must stop using cocaine as it increases your chances of another heart attack. You are to attend NA meetings daily- Call [phone] to set this up. You must stop smoking. You may buy nicotine patches over the counter to help you quit smoking. Call [place] quit line to help you stop [phone]. You are being discharged on the following medication: -Albuterol inhaler 90mcg/actuation 2 puffs every 6 hours as needed for shortness of breath -Aspirin 81mg once a day at 8am -Coreg 3.125 twice daily at 8am and 8pm -Clopidogrel 75mg daily 8am -Atorvastatin 40mg daily at 8pm -Enalapril 2.5mg daily at 2pm Return to the emergency for new or worsening symptoms. Referrals: Fracisco Raygoza MD [Staff Provider] - Winifred Rice MD [Medical Doctor] - <Jose Terry J - Last Filed: 01/25/19 17:27> Provider - Provider Date of Admission: 01/21/19 04:29 Attending physician: Rylan Del Rosario MD Consults: 01/21/19 07:30 Cardiology Consult Routine Comment: Consulting Provider: Fracisco Raygoza Consulting Physician: Fracisco Raygoza Reason for Consult: code heart 01/21/19 09:49 Podiatry Consult Routine Comment: call podiatry resident Consulting Provider: Kassandra Starr Consulting Physician: Kassandra Starr Reason for Consult: dystrophic, discolorer nails Hospital Course - Lab Results Lab Results: Micro Results 01/21/19 10:45 Blood Blood Culture - Preliminary NO GROWTH AFTER 4 DAYS 01/21/19 10:45 Blood Blood Culture - Preliminary NO GROWTH AFTER 4 DAYS 01/22/19 14:42 Naris MRSA Culture - Final MRSA NOT DETECTED 01/21/19 06:48 Nose MRSA Culture (Admit) - Final MRSA NOT DETECTED 01/21/19 14:28 Urine,Catheterized Urine Culture - Final No Growth (<1,000 CFU/ML) Most Recent Lab Values WBC 9.3 K/uL (4.8-10.8) 01/23/19 07:11 RBC 4.80 Mil/uL (4.40-5.90) 01/23/19 07:11 Hgb 14.9 g/dL (12.0-18.0) 01/23/19 07:11 Hct 44.6 % (35.0-51.0) 01/23/19 07:11 MCV 92.9 fL (80.0-94.0) 01/23/19 07:11 MCH 31.1 pg (27.0-31.0) H 01/23/19 07:11 MCHC 33.5 g/dL (33.0-37.0) 01/23/19 07:11 RDW 16.1 % (11.5-14.5) H 01/23/19 07:11 Plt Count 291 K/uL (130-400) 01/23/19 07:11 MPV 8.7 fL (7.2-11.7) 01/23/19 07:11 Neut % (Auto) 72.4 % (50.0-75.0) 01/23/19 07:11 Lymph % (Auto) 14.6 % (20.0-40.0) L 01/23/19 07:11 [place] % (Auto) 9.1 % (0.0-10.0) 01/23/19 07:11 Eos % (Auto) 3.3 % (0.0-4.0) 01/23/19 07:11 Baso % (Auto) 0.6 % (0.0-2.0) 01/23/19 07:11 Neut # (Auto) 6.8 K/uL (1.8-7.0) 01/23/19 07:11 Lymph # (Auto) 1.4 K/uL (1.0-4.3) 01/23/19 07:11 [place] # (Auto) 0.8 K/uL (0.0-0.8) 01/23/19 07:11 Eos # (Auto) 0.3 K/uL (0.0-0.7) 01/23/19 07:11 Baso # (Auto) 0.1 K/uL (0.0-0.2) 01/23/19 07:11 Neutrophils % (Manual) 86 % (50-75) H 01/21/19 03:19 Lymphocytes % (Manual) 8 % (20-40) L 01/21/19 03:19 Monocytes % (Manual) 6 % (0-10) 01/21/19 03:19 Platelet Estimate Normal (NORMAL) 01/21/19 03:19 PT 12.0 SECONDS (9.7-12.2) 01/21/19 03:19 INR 1.1 01/21/19 03:19 APTT 28 SECONDS (21-34) 01/21/19 03:19 Sodium 136 mmol/L (132-148) 01/23/19 07:11 Potassium 5.1 mmol/L (3.6-5.2) 01/23/19 07:11 Chloride 100 mmol/L (98-107) 01/23/19 07:11 Carbon Dioxide 32 mmol/L (22-30) H 01/23/19 07:11 Anion Gap 9 (10-20) L 01/23/19 07:11 BUN 13 mg/dL (9-20) 01/23/19 07:11 Creatinine 1.1 mg/dL (0.8-1.5) 01/23/19 07:11 Est GFR ( Amer) > 60 01/23/19 07:11 Est GFR (Non-Af Amer) > 60 01/23/19 07:11 POC Glucose (mg/dL) 109 mg/dL (65-110) 01/21/19 03:00 Random Glucose 87 mg/dL (75-110) 01/23/19 07:11 Hemoglobin A1c 4.9 % (4.2-6.5) 01/21/19 08:32 Calcium 8.7 mg/dl (8.6-10.4) 01/23/19 07:11 Phosphorus 2.5 mg/dL (2.5-4.5) 01/22/19 06:06 Magnesium 1.7 mg/dL (1.6-2.3) 01/22/19 06:06 Total Bilirubin 0.8 mg/dL (0.2-1.3) 01/23/19 07:11 AST 269 U/L (17-59) H D 01/23/19 07:11 ALT 116 U/L (21-72) H 01/23/19 07:11 Alkaline Phosphatase 47 U/L (38-126) 01/23/19 07:11 Troponin I 175.0000 ng/mL (0.00-0.120) H* 01/21/19 18:42 NT-Pro-B Natriuret Pep 189 pg/mL (0-900) 01/21/19 03:19 Total Protein 5.9 g/dL (6.3-8.3) L 01/23/19 07:11 Albumin 3.1 g/dL (3.5-5.0) L 01/23/19 07:11 Globulin 2.7 gm/dL (2.2-3.9) 01/23/19 07:11 Albumin/Globulin Ratio 1.1 (1.0-2.1) 01/23/19 07:11 Triglycerides 102 mg/dL (0-149) 01/21/19 03:19 Cholesterol 143 mg/dL (0-199) 01/21/19 03:19 LDL Cholesterol Direct 116 mg/dL (0-129) 01/21/19 03:19 HDL Cholesterol 21 mg/dL (30-70) L 01/21/19 03:19 TSH 3rd Generation 2.33 mIU/L (0.46-4.68) 01/21/19 03:19 Urine Color Yellow (YELLOW) 01/22/19 21:19 Urine Clarity Clear (Clear) 01/22/19 21:19 Urine pH 7.0 (5.0-8.0) 01/22/19 21:19 Ur Specific [place] 1.011 (1.003-1.030) 01/22/19 21:19 Urine Protein Negative mg/dL (NEGATIVE) 01/22/19 21:19 Urine Glucose (UA) Normal mg/dL (Normal) 01/22/19 21: Urine Ketones Negative mg/dL (NEGATIVE) 01/22/19 21: Urine Blood Negative (NEGATIVE) 01/22/19 21:19 Urine Nitrate Negative (NEGATIVE) 01/22/19 21: Urine Bilirubin Negative (NEGATIVE) 01/22/19 21:19 Urine Urobilinogen 4.0 mg/dL (0.2-1.0) 01/22/19 21:19 Ur Leukocyte Esterase Neg Ruma/uL (Negative) 01/22/19 21:19 Urine WBC (Auto) < 1 /hpf (0-5) 01/22/19 21:19 Urine RBC (Auto) 2 /hpf (0-3) 01/22/19 21:19 Ur Squamous Epith Cells < 1 /hpf (0-5) 01/22/19 21:19 Urine Opiates Screen Negative (NEGATIVE) 01/22/19 21:19 Urine Methadone Screen Negative (NEGATIVE) 01/22/19 21:19 Ur Barbiturates Screen Positive (NEGATIVE) H 01/22/19 21:19 Ur Phencyclidine Scrn Negative (NEGATIVE) 01/22/19 21:19 Ur Amphetamines Screen Negative (NEGATIVE) 01/22/19 21:19 U Benzodiazepines Scrn Negative (NEGATIVE) 01/22/19 21: U Oth Cocaine Metabols Positive (NEGATIVE) H 01/22/19 21:19 U Cannabinoids Screen Negative (NEGATIVE) 01/22/19 21:19 Alcohol, Quantitative 18 mg/dl (0-10) H 01/21/19 03:19 Hepatitis A IgM Ab Negative (NEGATIVE) 01/22/19 21:19 Hep Bs Antigen Negative (NEGATIVE) 01/22/19 21:19 Hep B Core IgM Ab Negative (NEGATIVE) 01/22/19 21:19 Hepatitis C Antibody Reactive (NEGATIVE) 01/22/19 21:19 HIV 1&2 Antibody Screen Negative (NEGATIVE) 01/22/19 21:19 Blood Type O POSITIVE 01/21/19 02:55 Antibody Screen Negative 01/21/19 02:55 Attending/Attestation - Attestation I have personally seen and examined this patient.: Yes I have fully participated in the care of the patient.: Yes I have reviewed all pertinent clinical information, including history, physical exam and plan: Yes Notes (Text): 01/25/19 17:25 This is a late entry. Care of this patient and discharge instructions were gone over with resident Dr. Lee. Extensive conversation with patient concerning the dangers of his illicit drug use (which he did not reveal to me when I first saw him when he asked what could have possibly caused his abnormal heart rythm). Patient also did not reveal that he had a history of Hepatitis C. He was asked to follow up with GI through his PMD. Jose Terry D.O.
[2019-01-23 07:50] VITALS: TEMP 98.3; O2SAT 95
[2019-01-23 08:15] LABS: ALB/GLOB RATIO 1.1 (1.0-2.1); ALBUMIN 3.1 g/dL (3.5-5.0); ALT/SGPT 116 U/L (21-72); AST/SGOT 269 U/L (17-59); BLOOD UREA NITROGEN 13 mg/dL (9-20); CALCIUM 8.7 mg/dl (8.6-10.4); GFR NON-AFRICAN AMERICAN > 60
[2019-01-23 09:53] VITALS: BP 116/63
--- NOTE | 2019-01-23 11:20 | CP.PCM.CON ---
History of Present Illness - History of Present Illness History of Present Illness: Podiatry Consult Note: Dr. Starr 58 year old male with PMHx of stroke, HTN and s/p cardiac catheterization was seen and evaluated for bilateral foot evaluation. Patient is AAOx3 and appears in NAD. Patient is very agitated and reports that there is nothing wrong with his feet or nails. States that nails look colored due to the shoes he was wearing. Reports that he has been using fungal nail solution at home prior to coming to the hospital. Denies of any other pedal complains at this time. No recent F/N/C/V/SOB/CP/headache. PMHx: stroke, HTN PSHx: Cardiac cath Allergies: NKDA SHx: Agrees to smoking and EtOH, denies any illicit drug usage Review of Systems - Constitutional Constitutional: As Per HPI Past Patient History - Past Medical History & Family History Past Medical History?: Yes - Past Social History Smoking Status: Light Smoker < 10 Cigarettes Daily - CARDIAC Hx Hypertension: Yes - PULMONARY Hx Emphysema: Yes - NEUROLOGICAL Hx Migraine: Yes - HEENT Hx HEENT Problems: No - RENAL Hx Chronic Kidney Disease: No - ENDOCRINE/METABOLIC Hx Endocrine Disorders: No - HEMATOLOGICAL/ONCOLOGICAL Hx Blood Disorders: No - INTEGUMENTARY Hx Dermatological Problems: No - MUSCULOSKELETAL/RHEUMATOLOGICAL Hx Musculoskeletal Disorders: No Hx Falls: No - GASTROINTESTINAL Hx Gastrointestinal Disorders: No Other/Comment: foreign body inside the rectum - PSYCHIATRIC Hx Substance Use: No - SURGICAL HISTORY Hx Surgeries: No - ANESTHESIA Hx Anesthesia: No Hx Anesthesia Reactions: No Hx Malignant Hyperthermia: No Meds Home Medications: Home Medication List Medication Instructions Recorded Confirmed Type Albuterol HFA [Ventolin HFA 90 2 puff IH [id number] PRN #1 inhaler 01/23/19 Rx mcg/actuation (8 g)] Aspirin [Aspirin Chewable] 81 mg PO DAILY #30 chew 01/23/19 Rx Atorvastatin [Lipitor] 40 mg PO DAILY #30 tab 01/23/19 Rx Carvedilol [Coreg] 3.125 mg PO BID #60 tab 01/23/19 Rx Clopidogrel Bisulfate [Plavix] 75 mg PO DAILY #30 tablet 01/23/19 Rx Enalapril Maleate [Vasotec] 2.5 mg PO DAILY #30 tab 01/23/19 Rx Allergies/Adverse Reactions: Allergies Allergy/AdvReac Type Severity Reaction Status Date / Time No Known Allergies Allergy Verified 01/21/19 02:54 - Medications Medications: Current Medications Albuterol/Ipratropium (Duoneb 3 Mg/0.5 Mg (3 Ml) Ud) 3 ml INH RQ6 PRN PRN Reason: Shortness of Breath Last Admin: 01/22/19 19:28 Dose: 3 ml Arformoterol Tartrate (Brovana) 15 mcg INH RQ12 ON LICENSE OF [facility] Last Admin: 01/23/19 07:11 Dose: Not Given Aspirin (Aspirin Chewable) 81 mg PO DAILY ON LICENSE OF [facility] Last Admin: 01/23/19 09:52 Dose: 81 mg Budesonide (Pulmicort Respules) 0.25 mg INH RQ12 ON LICENSE OF [facility] Last Admin: 01/23/19 07:11 Dose: 0.25 mg Carvedilol (Coreg) 3.125 mg PO BID ON LICENSE OF [facility] Last Admin: 01/23/19 09:52 Dose: 3.125 mg Enalapril Maleate (Vasotec) 2.5 mg PO DAILY ON LICENSE OF [facility] Last Admin: 01/23/19 09:52 Dose: 2.5 mg Heparin Sodium (Porcine) (Heparin) 5,000 units SC Q8 ON LICENSE OF [facility] Last Admin: 01/23/19 07:52 Dose: 5,000 units Nicotine (Nicoderm Cq) 1 patch TD DAILY ON LICENSE OF [facility] Last Admin: 01/23/19 09:53 Dose: Not Given Rosuvastatin Calcium (Crestor) 10 mg PO HS ON LICENSE OF [facility] Last Admin: 01/21/19 22:44 Dose: 10 mg Ticagrelor (Brilinta) 90 mg PO BID ON LICENSE OF [facility] Last Admin: 01/23/19 09:52 Dose: 90 mg Physical Exam - Constitutional Appears: Well, Non-toxic, No Acute Distress - Head Exam Head Exam: ATRAUMATIC - Extremities Exam Additional comments: Bilateral LE exam: VASC: DP/PT pulses are palpable 2/4, cap refill time: < 3 sec to all digits, Temp gradient: warm to cool from proximal to distal, no pitting or non-pitting edema noted DERM: nails are dystrophic, discolored, and hyperpigmented, no open lesions, no interdigital maceration, no clinical suspicion of active infection NEURO: Protective sensation grossly intact ORTHO: MMT: 5/5 in all four direction at the ankle joint, no pain during AROM or PROM at the ankle joint or MTPJ - Neurological Exam Neurological exam: Alert, Oriented x3 - Psychiatric Exam Psychiatric exam: Normal Affect, Normal Mood Results - Vital Signs Recent Vital Signs: Last Vital Signs Temp 98.3 F 01/23/19 07:05 Pulse 64 01/23/19 07:05 Resp 20 01/23/19 07:05 BP 116/63 01/23/19 09:52 Pulse Ox 95 01/23/19 07:05 - Labs Result Diagrams: 01/23/19 07:11 01/23/19 07:11 Labs: Laboratory Results - last 24 hr 01/22/19 01/22/19 01/22/19 21:19 21:19 21:19 WBC RBC Hgb Hct MCV MCH MCHC RDW Plt Count MPV Neut % (Auto) Lymph % (Auto) [place] % (Auto) Eos % (Auto) Baso % (Auto) Neut # (Auto) Lymph # (Auto) [place] # (Auto) Eos # (Auto) Baso # (Auto) Sodium Potassium Chloride Carbon Dioxide Anion Gap BUN Creatinine Est GFR ( Amer) Est GFR (Non-Af Amer) Random Glucose Calcium Total Bilirubin AST ALT Alkaline Phosphatase Total Protein Albumin Globulin Albumin/Globulin Ratio Urine Color Yellow Urine Clarity Clear Urine pH 7.0 Ur Specific [place] 1.011 Urine Protein Negative Urine Glucose (UA) Normal Urine Ketones Negative Urine Blood Negative Urine Nitrate Negative Urine Bilirubin Negative Urine Urobilinogen 4.0 Ur Leukocyte Esterase Neg Urine WBC (Auto) < 1 Urine RBC (Auto) 2 Ur Squamous Epith Cells < 1 Urine Opiates Screen Negative Urine Methadone Screen Negative Ur Barbiturates Screen Positive H Ur Phencyclidine Scrn Negative Ur Amphetamines Screen Negative U Benzodiazepines Scrn Negative U Oth Cocaine Metabols Positive H U Cannabinoids Screen Negative Hepatitis A IgM Ab Negative Hep Bs Antigen Negative Hep B Core IgM Ab Negative Hepatitis C Antibody Reactive HIV 1&2 Antibody Screen 01/22/19 01/23/19 01/23/19 21:19 07:11 07:11 WBC 9.3 RBC 4.80 Hgb 14.9 Hct 44.6 MCV 92.9 MCH 31.1 H MCHC 33.5 RDW 16.1 H Plt Count 291 MPV 8.7 Neut % (Auto) 72.4 Lymph % (Auto) 14.6 L [place] % (Auto) 9.1 Eos % (Auto) 3.3 Baso % (Auto) 0.6 Neut # (Auto) 6.8 Lymph # (Auto) 1.4 [place] # (Auto) 0.8 Eos # (Auto) 0.3 Baso # (Auto) 0.1 Sodium 136 Potassium 5.1 Chloride 100 Carbon Dioxide 32 H Anion Gap 9 L BUN 13 Creatinine 1.1 Est GFR ( Amer) > 60 Est GFR (Non-Af Amer) > 60 Random Glucose 87 Calcium 8.7 Total Bilirubin 0.8 AST 269 H D ALT 116 H Alkaline Phosphatase 47 Total Protein 5.9 L Albumin 3.1 L Globulin 2.7 Albumin/Globulin Ratio 1.1 Urine Color Urine Clarity Urine pH Ur Specific [place] Urine Protein Urine Glucose (UA) Urine Ketones Urine Blood Urine Nitrate Urine Bilirubin Urine Urobilinogen Ur Leukocyte Esterase Urine WBC (Auto) Urine RBC (Auto) Ur Squamous Epith Cells Urine Opiates Screen Urine Methadone Screen Ur Barbiturates Screen Ur Phencyclidine Scrn Ur Amphetamines Screen U Benzodiazepines Scrn U Oth Cocaine Metabols U Cannabinoids Screen Hepatitis A IgM Ab Hep Bs Antigen Hep B Core IgM Ab Hepatitis C Antibody HIV 1&2 Antibody Screen Negative Assessment & Plan - Assessment and Plan (Free Text) Assessment: 58 year old male with PMHx of stroke and HTN was evaluated for bilateral foot evaluation Plan: Patient seen and evaluated Discussed plan with attending Dr. Matty VENTURA Recommend patient to continue using anti-fungal Educated patient of proper foot hygiene Stable from podiatry standpoint Thank you for the podiatry consult and allowing to take part in patient care - Date & Time Date: 01/23/19 Time: 11:27
--- NOTE | 2019-01-23 13:53 | US ---
Date of service: 01/21/2019 HISTORY: transaminitis, alcohol use COMPARISON: None. TECHNIQUE: Sonographic evaluation of the abdomen. FINDINGS: LIVER: Measures 18.8 cm. Patent portal and hepatic venous systems. Hepatopedal blood flow. Fatty infiltration manifest ultrasonographically as increased echogenicity of the liver parenchyma. No mass. No intrahepatic bile duct dilatation. GALLBLADDER: Unremarkable. No gallstones. COMMON BILE DUCT: Measures 3.5 mm. No stones. No dilatation. PANCREAS: Unremarkable as visualized. No mass. No ductal dilatation. RIGHT KIDNEY: Measures 12.3 x 5 5cm. Normal echogenicity. No calculus, mass, or hydronephrosis. LEFT KIDNEY: Measures 5.9 x 12.3cm. Normal echogenicity. No calculus, mass, or hydronephrosis. SPLEEN: Top-normal spleen cephalocaudal dimension 12.9 cm. Normal echogenicity and contour. No mass. AORTA: No aneurysmal dilatation. IVC: Unremarkable. OTHER FINDINGS: None. IMPRESSION: Hepatic steatosis. No focal masses. No intrahepatic bile duct dilatation or perihepatic ascites. Top-normal spleen.
[2019-01-23 16:13] VITALS: PULSE 74
== END 2019-01-23 12:18 | disposition home or self-care (01) | DRG 246 ==
LOC: C.ER 02:49 → C.9I 04:29 → C.5S 01-22 13:05
PROVIDERS: ADMIT Family Medicine; ATTEND Family Medicine
PROC: 027034Z Dilation of Coronary Artery, One Artery with Drug-eluting Intraluminal Device, Percutaneous Approach (ICD-10-PCS; principal; 2019-01-21)
PROC: 5A2204Z Restoration of Cardiac Rhythm, Single (ICD-10-PCS; 2019-01-21)
PROC: 4A023N8 Measurement of Cardiac Sampling and Pressure, Bilateral, Percutaneous Approach (ICD-10-PCS; 2019-01-21)
PROC: B2111ZZ Fluoroscopy of Multiple Coronary Arteries using Low Osmolar Contrast (ICD-10-PCS; 2019-01-21)
PROC: B2161ZZ Fluoroscopy of Right and Left Heart using Low Osmolar Contrast (ICD-10-PCS; 2019-01-21)
DX: I21.19 ST elevation (STEMI) myocardial infarction involving other coronary artery of inferior wall (principal); I49.01 Ventricular fibrillation; K72.00 Acute and subacute hepatic failure without coma; I47.2 Ventricular tachycardia; F17.210 Nicotine dependence, cigarettes, uncomplicated; E66.9 Obesity, unspecified; E78.5 Hyperlipidemia, unspecified; I10 Essential (primary) hypertension; I25.10 Atherosclerotic heart disease of native coronary artery without angina pectoris; J43.9 Emphysema, unspecified; Z86.73 Personal history of transient ischemic attack (TIA), and cerebral infarction without residual deficits; Z95.5 Presence of coronary angioplasty implant and graft; Z86.19 Personal history of other infectious and parasitic diseases; D72.829 Elevated white blood cell count, unspecified

== ENCOUNTER 2019-01-26 19:22 | Inpatient (IN) | payer MEDICAID ==
--- NOTE | 2019-01-26 19:45 | C.PDOC ---
History Of Present Illness Patient presents complaining of chest pain for the past few hours. Patient was admitted on 01/21/19, was cardiovert after which showed inferior wall [place], was stented in the left circumflex and discharged. He returns today with dull aching chest pain that occurred while laying in bed earlier today. Patient reports he has been compliant with his medications. Currently speaking in complete sentences. Denies fever, chills, nausea, or vomiting. Time Seen by Provider: 01/26/19 19:44 Chief Complaint (Nursing): Chest Pain History Per: Patient History/Exam Limitations: no limitations Onset/Duration Of Symptoms: Hrs Current Symptoms Are (Timing): Still Present Severity: Severe Pain Scale Rating Of: 7 Quality: Tightness, Pressure Associated Symptoms: denies: Nausea, Other (Fever, chills, nausea, vomiting) Modifying Factors: None Exacerbating Factors: None Alleviating Factors: None Recent travel outside of the [place]: No Additional History Per: Patient Past Medical History Reviewed: Historical Data, Nursing Documentation, Vital Signs Vital Signs: Last Vital Signs Temp 99.8 F H 01/26/19 19:33 Pulse 78 01/26/19 19:33 Resp 16 01/26/19 19:33 BP 146/79 01/26/19 19:33 Pulse Ox 97 01/26/19 19:33 - Medical History PMH: Emphysema, HTN, Migraine Denies: Chronic Kidney Disease - [facility] Procedures DILATION OF 1 COR ART WITH DRUG-ELUT INTRA, PERC APPROACH (01/21/19) EXTIRPATION OF MATTER FROM RECTUM, VIA OPENING (06/10/18) FLUOROSCOPY OF MULT COR ART USING L OSM CONTRAST (01/21/19) FLUOROSCOPY OF RIGHT AND LEFT HEART USING L OSM CONTRAST (01/21/19) MEASURE CARDIAC SAMPL & PRESSURE, BILATERAL, PERC (01/21/19) CHEONDOISM OF CARDIAC RHYTHM, SINGLE (01/21/19) Family History: States: No Known Family Hx - Social History Hx Alcohol Use: Yes Hx Substance Use: No - Immunization History Hx Tetanus Toxoid Vaccination: (unk) Hx Influenza Vaccination: (unk) Hx Pneumococcal Vaccination: (unk) Review Of Systems Constitutional: Negative for: Fever, Chills Eyes: Negative for: Vision Change ENT: Negative for: Throat Pain Cardiovascular: Positive for: Chest Pain. Negative for: Palpitations Respiratory: Negative for: Cough, Shortness of Breath Gastrointestinal: Negative for: Nausea, Vomiting Genitourinary: Negative for: Dysuria Musculoskeletal: Negative for: Back Pain Skin: Negative for: Rash Neurological: Negative for: Weakness, Numbness Psych: Negative for: Anxiety Physical Exam - Physical Exam Appears: Non-toxic, In Acute Distress Skin: Warm, Dry Head: Normacephalic Eye(s): bilateral: Normal Inspection Oral Mucosa: Moist Neck: Trachea Midline, Supple Chest: Symmetrical, No Tenderness Cardiovascular: Rhythm Regular Respiratory: No Rales, No Rhonchi, No Wheezing Gastrointestinal/Abdominal: Soft, No Tenderness Back: No CVA Tenderness Extremity: Normal ROM Extremity: Bilateral: Atraumatic, Normal Color And Temperature, Normal ROM Pulses: Left Dorsalis Pedis: Normal, Right Dorsalis Pedis: Normal Neurological/Psych: Oriented x3, Normal Speech, Normal Cognition Gait: Unable To Assess ED Course And Treatment - Laboratory Results Result Diagrams: 01/26/19 20:04 01/26/19 20:04 ECG: Interpreted By Me, Viewed By Me ECG Rhythm: Sinus Rhythm (76), ST/T Changes (st elevation inf leads unchanged from 01/21/19) O2 Sat by Pulse Oximetry: 97 (Room air) Pulse Ox Interpretation: Normal - Radiology CXR: Interpreted by Me, Viewed By Me CXR Interpretation: No: Infiltrates, Fracture, Pnemothorax Progress Note: Spoke with Dr. Tran at 7:48pm, ekg remains unchanged from post cath ekg, will treat medically, patient does not meet code heart criteria. will cath in am. Spoke with dr moreno. Will see the pt in the ed Critical Care Time - Critical Care Note Total Time (in mins): 30 Documented critical care: time excludes all time spent performing seperately billable procedures. Disposition Discussed With : Karen Patterson Comment: accepted the pt onher service and took over the care at 9:14PM Doctor Will See Patient In The: ED Counseled Patient/Family Regarding: Studies Performed, Diagnosis - Disposition Disposition: HOSPITALIZED Disposition Time: 19:44 Condition: GUARDED - Clinical Impression Clinical Impression: Chest pain - Scribe Statement The provider has reviewed the documentation as recorded by the Scribsherly Bro All medical record entries made by the Lopezibsherly were at my direction and perso melissa dictated by me. I have reviewed the chart and agree that the record accurately reflects my personal performance of the history, physical exam, medical decision making, and the department course for this patient. I have also personally directed, reviewed, and agree with the discharge instructions and disposition.
[2019-01-26] MEDS ORDERED: Aspirin 325 mg EC Tablets PO STA (19:55)
[2019-01-26] MEDS ORDERED: Heparin 5,000 UNITS in Sodium Chloride 0.9% 500 ML IV STA (19:55)
[2019-01-26 20:07] LABS: BASO # 0.1 K/uL (0.0-0.2); BASO % 0.9 % (0.0-2.0); EOS # 0.6 K/uL (0.0-0.7); EOS % 6.2 % (0.0-4.0); HEMOGLOBIN 15.4 g/dL (12.0-18.0); LYMPH # 1.5 K/uL (1.0-4.3); LYMPH % 14.4 % (20.0-40.0); MEAN CORPUSCULAR HEMOGLOBIN 30.9 pg (27.0-31.0); MEAN CORPUSCULAR HGB CONC 34.3 g/dL (33.0-37.0); MONO % 10.2 % (0.0-10.0); NEUT # 6.9 K/uL (1.8-7.0); NEUT % 68.3 % (50.0-75.0); RBC 4.98 Mil/uL (4.40-5.90); RED CELL DISTRIBUTION WIDTH 15.8 % (11.5-14.5); WHITE BLOOD COUNT 10.2 K/uL (4.8-10.8)
[2019-01-26 20:13] LABS: MEAN CELL VOLUME 90.2 fL (80.0-94.0)
[2019-01-26 20:16] LABS: INR 1.2; PROTHROMBIN TIME 12.7 SECONDS (9.7-12.2)
[2019-01-26 20:26] LABS: ALB/GLOB RATIO 1.2 (1.0-2.1); BLOOD UREA NITROGEN 24 mg/dL (9-20); CALCIUM 9.5 mg/dl (8.6-10.4); GFR NON-AFRICAN AMERICAN > 60
[2019-01-26 20:27] LABS: ALT/SGPT 113 U/L (21-72); AST/SGOT 100 U/L (17-59); LIPASE 140 U/L (23-300)
[2019-01-26] MEDS ORDERED: Heparin25000 units/250ml 1/2NS 25,000 UNITS/250 ML BAG IV ONE (20:30)
[2019-01-26] MEDS ORDERED: Nitroglycerin 50mg in D5W 50 MG/250 ML BOTTLE IV ONE (20:45)
[2019-01-26 21:43] LABS: URINE BILIRUBIN NEGATIVE (NEGATIVE); URINE CLARITY Clear (Clear); URINE COLOR Yellow (YELLOW); URINE GLUCOSE (UA) NORMAL (Normal); URINE LEUKOCYTE ESTERASE NEG Leu/uL (Negative); URINE PROTEIN NEGATIVE (NEGATIVE); URINE UROBILINOGEN NORMAL mg/dL (0.2-1.0)
[2019-01-26 21:47] LABS: URINE BLOOD TRACE (NEGATIVE)
--- NOTE | 2019-01-26 21:49 | CP.PCM.CON ---
History of Present Illness - History of Present Illness History of Present Illness: 58 y/o male with CAD,s/p stent laxst week,HTN,emphysema,drug use c/o intermittent chest tightness since morning.no associated nausea ,vomitting,radiation of pain,palpitations,shortness of breath Patient was admitted on 01/21/19, was cardioverted after which showed inferior wall [place], was stented in the left circumflex and discharged 01/23/19. Patient reports he has been compliant with his medications. Review of Systems - Constitutional Constitutional: absent: Anorexia, Malaise - EENT Eyes: absent: Change in Vision Ears: absent: Ear Pain, Dizziness Nose/Mouth/Throat: absent: Nasal Congestion, Sore Throat - Cardiovascular Cardiovascular: Chest Pain, Chest Pain at Rest, Chest Pain with Activity. absent: Claudication, Leg Edema, Palpitations, Radiating Pain, Rapid Heart Rate - Respiratory Respiratory: absent: Cough, Dyspnea - Gastrointestinal Gastrointestinal: absent: Abdominal Pain, Nausea, Vomiting - Genitourinary Genitourinary: absent: Change in Urinary Stream, Difficulty Urinating - Integumentary Integumentary: absent: Wounds - Neurological Neurological: absent: Headaches - Endocrine Endocrine: absent: Palpitations - Hematologic/Lymphatic Hematologic: absent: Easy Bleeding Past Patient History - Past Medical History & Family History Past Medical History?: Yes - Past Social History Smoking Status: Light Smoker < 10 Cigarettes Daily Alcohol: Occasional Drugs: Denies - CARDIAC Hx Hypertension: Yes - PULMONARY Hx Emphysema: Yes - NEUROLOGICAL Hx Migraine: Yes - HEENT Hx HEENT Problems: No - RENAL Hx Chronic Kidney Disease: No - ENDOCRINE/METABOLIC Hx Endocrine Disorders: No - HEMATOLOGICAL/ONCOLOGICAL Hx Blood Disorders: No - INTEGUMENTARY Hx Dermatological Problems: No - MUSCULOSKELETAL/RHEUMATOLOGICAL Hx Musculoskeletal Disorders: No Hx Falls: No - GASTROINTESTINAL Hx Gastrointestinal Disorders: No Other/Comment: foreign body inside the rectum - PSYCHIATRIC Hx Substance Use: No - SURGICAL HISTORY Hx Surgeries: Yes Hx Cardiac Catheterization: Yes - ANESTHESIA Hx Anesthesia: No Hx Anesthesia Reactions: No Hx Malignant Hyperthermia: No Meds Allergies/Adverse Reactions: Allergies Allergy/AdvReac Type Severity Reaction Status Date / Time No Known Allergies Allergy Verified 01/21/19 02:54 - Medications Medications: Current Medications Heparin Sodium/Sodium Chloride (Heparin 84557 Units/250ml 1/2 Normal Saline) 25,000 units in 250 mls @ 10 mls/hr IV ONCE ONE Stop: 01/27/19 21:29 Last Admin: 01/26/19 20:32 Dose: 10 mls/hr Nitroglycerin/Dextrose (Nitroglycerin 50 Mg/250 Ml D5w) 50 mg in 250 mls @ 3 mls/hr IV .Q24H ONE Stop: 01/27/19 20:44 Last Admin: 01/26/19 21:11 Dose: 3 mls/hr Physical Exam - Constitutional Appears: Non-toxic, No Acute Distress - Head Exam Head Exam: ATRAUMATIC, NORMAL INSPECTION, NORMOCEPHALIC - Eye Exam Eye Exam: EOMI Pupil Exam: NORMAL ACCOMODATION Additional comments: right eye smaller than left - ENT Exam ENT Exam: Mucous Membranes Moist - Neck Exam Neck exam: Positive for: Normal Inspection - Respiratory Exam Respiratory Exam: Clear to Auscultation Bilateral, NORMAL BREATHING PATTERN - Cardiovascular Exam Cardiovascular Exam: REGULAR RHYTHM - GI/Abdominal Exam GI & Abdominal Exam: Normal Bowel Sounds Results - Vital Signs Recent Vital Signs: Last Vital Signs Temp 99.8 F H 01/26/19 19:33 Pulse 79 01/26/19 21:11 Resp 12 01/26/19 21:11 BP 117/60 01/26/19 21:11 Pulse Ox 97 01/26/19 21:14 - Labs Result Diagrams: 01/26/19 20:04 01/26/19 20:04 Labs: Laboratory Results - last 24 hr 01/26/19 01/26/19 01/26/19 20:04 20:04 20:04 WBC 10.2 RBC 4.98 Hgb 15.4 Hct 44.9 MCV 90.2 D MCH 30.9 MCHC 34.3 RDW 15.8 H Plt Count 342 MPV 9.0 Neut % (Auto) 68.3 Lymph % (Auto) 14.4 L [place] % (Auto) 10.2 H Eos % (Auto) 6.2 H Baso % (Auto) 0.9 Neut # (Auto) 6.9 Lymph # (Auto) 1.5 [place] # (Auto) 1.0 H Eos # (Auto) 0.6 Baso # (Auto) 0.1 PT 12.7 H INR 1.2 APTT 33.0 Sodium 137 Potassium 4.5 Chloride 96 L Carbon Dioxide 31 H Anion Gap 14 BUN 24 H Creatinine 1.1 Est GFR ( Amer) > 60 Est GFR (Non-Af Amer) > 60 Random Glucose 90 Calcium 9.5 Total Bilirubin 0.6 AST 100 H D ALT 113 H Alkaline Phosphatase 68 Troponin I 4.1200 H* Total Protein 7.2 Albumin 4.0 Globulin 3.2 Albumin/Globulin Ratio 1.2 Lipase 140 Urine Color Urine Clarity Urine pH Ur Specific [place] Urine Protein Urine Glucose (UA) Urine Ketones Urine Blood Urine Nitrate Urine Bilirubin Urine Urobilinogen Ur Leukocyte Esterase Urine WBC (Auto) Urine RBC (Auto) 01/26/19 21:05 WBC RBC Hgb Hct MCV MCH MCHC RDW Plt Count MPV Neut % (Auto) Lymph % (Auto) [place] % (Auto) Eos % (Auto) Baso % (Auto) Neut # (Auto) Lymph # (Auto) [place] # (Auto) Eos # (Auto) Baso # (Auto) PT INR APTT Sodium Potassium Chloride Carbon Dioxide Anion Gap BUN Creatinine Est GFR ( Amer) Est GFR (Non-Af Amer) Random Glucose Calcium Total Bilirubin AST ALT Alkaline Phosphatase Troponin I Total Protein Albumin Globulin Albumin/Globulin Ratio Lipase Urine Color Yellow Urine Clarity Clear Urine pH 6.0 Ur Specific [place] 1.017 Urine Protein Negative Urine Glucose (UA) Normal Urine Ketones Negative Urine Blood Trace H Urine Nitrate Negative Urine Bilirubin Negative Urine Urobilinogen Normal Ur Leukocyte Esterase Neg Urine WBC (Auto) < 1 Urine RBC (Auto) 3 Assessment & Plan - Assessment and Plan (Free Text) Assessment: 1.Acute Coronary syndrome/CAD/HTN IV heparin and nitrates received Aspirin and plavix in ER continue ACEI,Beta makayla,crestor 2.COPD bronchodilators PRN 3.Elevated LFT f/u with rpt labs 4.Hematuria-rpt UA
--- NOTE | 2019-01-26 21:58 | CP.PCM.HP ---
History of Present Illness - History of Present Illness History of Present Illness: History and physical for Dr. Karen Patterson HPI: Patient is a 58 year old male with history of recent ST elevation UT status post stenting of left circumflex on 01/21/19 who presents for intermittent chest tightness that started earlier today. He states he woke up this morning without any discomfort, and developed mild chest tightness while he was in a [employer] on his way to run some errands. He states he did not think much of it at that time, thought it might be gas, and went about his day. He states he returned home and noticed he had midsternal chest tightness rated 5/10 when he laid down in his bed. He states it remained at a 5/10 for about 20 mins, after which it went down to a 2/10. He then took a shower, and then decided to come in because he did not want his chest tightness to worsen anymore. He called an [employer] to bring him to the ER for further evaluation. He states he denies nausea, vomiting, diaphoresis, radiation of pain, neck, jaw, arm weakness. He was recently admitted here on 01/21/19 for acute onset of chest pain, initially found to be in wide complex tachycardia, received Amiodarone, Cardizem, cardioverted and then found to have ST elevations in the inferior leads. [facility] was subsequently called and patient had emergent cardiac catheterization on 01/21/[address] Raygoza who subsequently stented left c ircumflex with additional findings of 60-70% stenosis of LAD. He was discharged on 01/23/19 with Aspirin and Plavix and he states he has been compliant with his medications on discharge. PMH: Hypertension, ST elevation UT with L circumflex stent, Hep C reactive at last admission - untreated PSH: L circumflex stent, FB removal, cyst removal over right chest Social hx: smoked 2 to 3 cigarettes a week since age 17, Alcohol intermittently cannot specifiy how much, history of cocaine and marijuana use (states that he has not used cocaine in a long time and believes that marijuana was laced with cocaine, leading to positive cocaine on UDS on recent hospitalization). States he has not smoked, drank alcohol or used any drug since his discharge on 01/23/19. 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 Family hx: Father had UT at age 55 Allergies: NKDA PMD: Dr. Rice Present on Admission - Present on Admission Any Indicators Present on Admission: No Review of Systems - Constitutional Constitutional: absent: Chills, Fever, Weakness - EENT Eyes: absent: Change in Vision Nose/Mouth/Throat: absent: Nasal Congestion - Cardiovascular Cardiovascular: Chest Pain. absent: Dyspnea, Leg Edema, Lightheadedness, Pa lpitations - Respiratory Respiratory: absent: Cough, Dyspnea - Gastrointestinal Gastrointestinal: absent: Abdominal Pain, Diarrhea, Nausea, Vomiting - Genitourinary Genitourinary: absent: Dysuria, Hematuria - Musculoskeletal Musculoskeletal: absent: Muscle Weakness - Neurological Neurological: absent: Abnormal Movements, Confusion, Headaches, Syncope, Tingling - Psychiatric Psychiatric: absent: Anxiety, Depression Past Patient History - Past Medical History & Family History Past Medical History?: Yes - Past Social History Smoking Status: Light Smoker < 10 Cigarettes Daily Alcohol: Occasional Drugs: Denies - CARDIAC Hx Hypertension: Yes - PULMONARY Hx Emphysema: Yes - NEUROLOGICAL Hx Migraine: Yes - HEENT Hx HEENT Problems: No - RENAL Hx Chronic Kidney Disease: No - ENDOCRINE/METABOLIC Hx Endocrine Disorders: No - HEMATOLOGICAL/ONCOLOGICAL Hx Blood Disorders: No - INTEGUMENTARY Hx Dermatological Problems: No - MUSCULOSKELETAL/RHEUMATOLOGICAL Hx Musculoskeletal Disorders: No Hx Falls: No - GASTROINTESTINAL Hx Gastrointestinal Disorders: No Other/Comment: foreign body inside the rectum - PSYCHIATRIC Hx Substance Use: No - SURGICAL HISTORY Hx Surgeries: Yes Hx Cardiac Catheterization: Yes - ANESTHESIA Hx Anesthesia: No Hx Anesthesia Reactions: No Hx Malignant Hyperthermia: No Meds Allergies/Adverse Reactions: Allergies Allergy/AdvReac Type Severity Reaction Status Date / Time No Known Allergies Allergy Verified 01/21/19 02:54 Physical Exam - Constitutional Appears: Well, No Acute Distress - Head Exam Head Exam: ATRAUMATIC, NORMOCEPHALIC - Eye Exam Eye Exam: EOMI, PERRL - ENT Exam ENT Exam: Mucous Membranes Moist - Neck Exam Neck exam: Positive for: Full Rom - Respiratory Exam Respiratory Exam: Clear to Auscultation Bilateral, NORMAL BREATHING PATTERN. absent: Chest Wall Tenderness - Cardiovascular Exam Cardiovascular Exam: REGULAR RHYTHM, +S1, +S2 - GI/Abdominal Exam GI & Abdominal Exam: Normal Bowel Sounds, Soft. absent: Distended, Firm, Tenderness - Extremities Exam Extremities exam: Positive for: pedal pulses present. Negative for: calf tenderness, pedal edema - Back Exam Back exam: absent: CVA tenderness (L), CVA tenderness (R) - Neurological Exam Neurological exam: Alert, CN II-XII Intact, Oriented x3 - Skin Skin Exam: Dry, Intact, Warm Additional comments: Dark discoloration of toe nails Results - Vital Signs Recent Vital Signs: Last Vital Signs Temp 99.8 F H 01/26/19 19:33 Pulse 79 01/26/19 21:11 Resp 12 01/26/19 21:11 BP 117/60 01/26/19 21:11 Pulse Ox 97 01/26/19 21:14 - Labs Result Diagrams: 01/26/19 20:04 01/26/19 20:04 Labs: Laboratory Results - last 24 hr 01/26/19 01/26/19 01/26/19 20:04 20:04 20:04 WBC 10.2 RBC 4.98 Hgb 15.4 Hct 44.9 MCV 90.2 D MCH 30.9 MCHC 34.3 RDW 15.8 H Plt Count 342 MPV 9.0 Neut % (Auto) 68.3 Lymph % (Auto) 14.4 L Rooks % (Auto) 10.2 H Eos % (Auto) 6.2 H Baso % (Auto) 0.9 Neut # (Auto) 6.9 Lymph # (Auto) 1.5 Rooks # (Auto) 1.0 H Eos # (Auto) 0.6 Baso # (Auto) 0.1 PT 12.7 H INR 1.2 APTT 33.0 Sodium 137 Potassium 4.5 Chloride 96 L Carbon Dioxide 31 H Anion Gap 14 BUN 24 H Creatinine 1.1 Est GFR ( Amer) > 60 Est GFR (Non-Af Amer) > 60 Random Glucose 90 Calcium 9.5 Total Bilirubin 0.6 AST 100 H D ALT 113 H Alkaline Phosphatase 68 Troponin I 4.1200 H* Total Protein 7.2 Albumin 4.0 Globulin 3.2 Albumin/Globulin Ratio 1.2 Lipase 140 Urine Color Urine Clarity Urine pH Ur Specific [place] Urine Protein Urine Glucose (UA) Urine Ketones Urine Blood Urine Nitrate Urine Bilirubin Urine Urobilinogen Ur Leukocyte Esterase Urine WBC (Auto) Urine RBC (Auto) 01/26/19 21:05 WBC RBC Hgb Hct MCV MCH MCHC RDW Plt Count MPV Neut % (Auto) Lymph % (Auto) Rooks % (Auto) Eos % (Auto) Baso % (Auto) Neut # (Auto) Lymph # (Auto) Rooks # (Auto) Eos # (Auto) Baso # (Auto) PT INR APTT Sodium Potassium Chloride Carbon Dioxide Anion Gap BUN Creatinine Est GFR ( Amer) Est GFR (Non-Af Amer) Random Glucose Calcium Total Bilirubin AST ALT Alkaline Phosphatase Troponin I Total Protein Albumin Globulin Albumin/Globulin Ratio Lipase Urine Color Yellow Urine Clarity Clear Urine pH 6.0 Ur Specific [place] 1.017 Urine Protein Negative Urine Glucose (UA) Normal Urine Ketones Negative Urine Blood Trace H Urine Nitrate Negative Urine Bilirubin Negative Urine Urobilinogen Normal Ur Leukocyte Esterase Neg Urine WBC (Auto) < 1 Urine RBC (Auto) 3 Assessment & Plan - Assessment and Plan (Free Text) Assessment: 58 year old male with history of hypertension and recent inferior wall ST elevation UT with stent placed in left circumflex on 01/21/19 who presents for midsternal chest tightness. Plan: Chest Pain Acute inferior wall UT with stent in left circumflex on 01/21/[address] Tran on board In ED, patient received ASA 325mg Plavix 300mg PO, Heparin 5000 units, Protonix 40mg Heparin drip Nitro drip Troponin 4.12 --> 4.510 EKG: ST elevations in Leads 2, 3, AVF, unchanged from post cath EKG, not code heart criteria. CXR no infiltrates ASA 81mg PO Plavix 75mg PO Cardizem 30mg PO QID (hold for SBP <110, HR <60) Enalapril 2.5mg PO Crestor 10mg PO HS NPO past midnight Plan for cardiac cath in morning Hematuria trace blood on UA Repeat UA in AM. H/H 15.4/44.9 History of hypertension Cardizem 30mg PO QID (hold for SBP <110, HR <60) Enalapril 2.5mg PO History of cocaine abuse Hold Beta blockers UDS this admission: negative for cocaine History of alcohol use Patient states he has not drank alcohol since discharge Alcohol <10 History of tobacco use Has not smoked since discharge on 01/23/19 Does not want patch Nail discoloration of toes Toenails discolored, reportedly from dye from [employer] boots Hep C reactive Hep C reactive on last admission Never received treatment Prophylaxis Pepcid 20mg PO HS SCDs Heparin drip Case discussed with Dr. Karen Salmeron, PGY1
[2019-01-26 22:08] LABS: BENZODIAZEPINES, UR NEGATIVE (NEGATIVE); OPIATES, UR NEGATIVE (NEGATIVE); PHENCYCLIDINE, UR NEGATIVE (NEGATIVE)
[2019-01-26 22:11] LABS: BARBITURATES, UR POSITIVE (NEGATIVE)
--- NOTE | 2019-01-26 22:24 | RAD ---
HISTORY: chest pain COMPARISON: Chest x-ray performed 01/21/19 TECHNIQUE: Chest, one view. FINDINGS: Examination limited by habitus. LUNGS: Left upper lobe lucency appears consistent with a bulla rather than pneumothorax. No focal consolidation. Please note that chest x-ray has limited sensitivity for the detection of pulmonary masses. PLEURA: No significant pleural effusion identified. No definite pneumothorax . CARDIOVASCULAR: Defibrillator pads project over the left hemithorax/upper abdomen. Cardiomegaly. Atherosclerotic calcifications present. OSSEOUS STRUCTURES: Degenerative changes of the spine. VISUALIZED UPPER ABDOMEN: Unremarkable. OTHER FINDINGS: None. IMPRESSION: Re-identified lucency in the left upper lobe appears consistent with bulla rather than pneumothorax. Correlate clinically. External defibrillator pads project over the left mid chest/upper abdomen. Cardiomegaly.
[2019-01-26] MEDS: Heparin25000 units/250ml 1/2NS 25,000 UNITS/250 ML BAG IV PRN (23:47)
[2019-01-27 02:12] LABS: CK-MB 10.6 ng/mL (0.0-3.38); TROPONIN I 4.51 ng/mL (0.00-0.120)
[2019-01-27 06:28] LABS: URINE BILIRUBIN NEGATIVE (NEGATIVE); URINE BLOOD NEGATIVE (NEGATIVE); URINE CLARITY Clear (Clear); URINE COLOR Yellow (YELLOW); URINE GLUCOSE (UA) NORMAL (Normal); URINE LEUKOCYTE ESTERASE NEG Leu/uL (Negative); URINE PROTEIN NEGATIVE (NEGATIVE); URINE UROBILINOGEN NORMAL mg/dL (0.2-1.0)
[2019-01-27 06:41] LABS: BASO # 0.1 K/uL (0.0-0.2); BASO % 0.6 % (0.0-2.0); EOS # 0.7 K/uL (0.0-0.7); EOS % 7.9 % (0.0-4.0); HEMOGLOBIN 14.6 g/dL (12.0-18.0); LYMPH # 1.5 K/uL (1.0-4.3); LYMPH % 16.4 % (20.0-40.0); MEAN CELL VOLUME 91.4 fL (80.0-94.0); MEAN CORPUSCULAR HEMOGLOBIN 31.3 pg (27.0-31.0); MEAN CORPUSCULAR HGB CONC 34.2 g/dL (33.0-37.0); MEAN PLATELET VOLUME 9.1 fL (7.2-11.7); MONO # 0.9 K/uL (0.0-0.8); MONO % 10.4 % (0.0-10.0); NEUT # 5.9 K/uL (1.8-7.0); NEUT % 64.7 % (50.0-75.0); RBC 4.67 Mil/uL (4.40-5.90); RED CELL DISTRIBUTION WIDTH 15.9 % (11.5-14.5); WHITE BLOOD COUNT 9.1 K/uL (4.8-10.8)
[2019-01-27 06:59] LABS: ALB/GLOB RATIO 1.3 (1.0-2.1); ALBUMIN 3.7 g/dL (3.5-5.0); ALT/SGPT 101 U/L (21-72); AST/SGOT 94 U/L (17-59); BLOOD UREA NITROGEN 24 mg/dL (9-20); CALCIUM 8.5 mg/dl (8.6-10.4); GFR NON-AFRICAN AMERICAN > 60
[2019-01-27 07:14] LABS: TROPONIN I 4.5 ng/mL (0.00-0.120)
[2019-01-27] MEDS: Heparin25000 units/250ml 1/2NS 25,000 UNITS/250 ML BAG IV PRN (08:08)
[2019-01-27] MEDS ORDERED: Lidocaine 2% MPF (5 ml) Inj ONE ×2 (09:15→09:35)
--- NOTE | 2019-01-27 09:28 | CP.PCM.PN ---
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 Will reattempt to see him later today. Objective - Vital Signs/Intake and Output Vital Signs (last 24 hours): Temp Pulse Resp BP Pulse Ox 99 F 70 20 100/58 L 98 01/27/19 08:00 01/27/19 08:01 01/27/19 08:01 01/27/19 08:01 01/27/19 08:01 Intake and Output: 01/27/19 01/27/19 06:59 18:59 Intake Total 374.0 360.4 Output Total 1300 Balance -926.0 360.4 - Medications Medications: Current Medications Aspirin (Ecotrin) 81 mg PO DAILY [facility] Clopidogrel Bisulfate (Plavix) 75 mg PO DAILY [facility] Diltiazem HCl (Cardizem) 30 mg PO QID [facility] Enalapril Maleate (Vasotec) 2.5 mg PO DAILY [facility] Famotidine (Pepcid) 20 mg PO BID [facility] Nitroglycerin/Dextrose (Nitroglycerin 50 Mg/250 Ml D5w) 50 mg in 250 mls @ 3 mls/hr IV .Q24H ONE Stop: 01/27/19 20:44 Last Admin: 01/26/19 21:11 Dose: 3 mls/hr Heparin Sodium/Sodium Chloride (Heparin 64802 Units/250ml 1/2 Normal Saline) 25,000 units in 250 mls @ 10.375 mls/hr IV .Q24H PRN; Protocol PRN Reason: ADJUST RATE PER PROTOCOL Last Titration: 01/27/19 08:08 Dose: 14 units/kg/hr, 12.104 mls/hr Rosuvastatin Calcium (Crestor) 10 mg PO HS SHANI - Labs Labs: 01/27/19 06:21 01/27/19 06:21 PT 12.7 SECONDS (9.7-12.2) H 01/26/19 20:04 INR 1.2 01/26/19 20:04 APTT 39.0 SECONDS (21-34) H D 01/27/19 06:21
[2019-01-27] MEDS ORDERED: Iohexol 350mg/ml 100 ML ONE (09:34)
[2019-01-27] MEDS ORDERED: Verapamil 2 ML ONE (09:34)
[2019-01-27] MEDS ORDERED: Midazolam 2 MG/2 ML VIAL ONE (09:35)
[2019-01-27] MEDS ORDERED: Nitroglycerin 50mg in D5W 50 MG/250 ML BOTTLE IV ONE (09:35)
--- NOTE | 2019-01-27 10:24 | CP.PCM.PN ---
Subjective - Date & Time of Evaluation Date of Evaluation: 01/27/19 Time of Evaluation: 10:15 - Subjective Subjective: Medical Attending Note: Patient seen and examined. Patient completed cardiac cath with Dr. Dean: reocclusion of circumflex in spite of aspir/plavix. Patient reports he is compliant on his Aspirin and Plavix. He also has LAD 60-65% on cath as well. Patient seen post cath, denies headache, denies chest pain, denies palpitations, denies abdominal pain, denies urinary complaints. Recommendation for CABG given LAD/Circumflex and clotting inspite of dual platelet therapy. I spoke with Lora Lee, patient's fiance, girlfriend, [facility] ([phone]) with permission with patient in regards to CABG recommendation; They are presently speaking with Dr. dean at bedside as well. pending decision from family. Patient initially did not speak with his point of contact, sister, because she is battling MS, but advised to include her in conversation. Objective - Vital Signs/Intake and Output Vital Signs (last 24 hours): Temp Pulse Resp BP Pulse Ox 99 F 70 20 100/58 L 98 01/27/19 08:00 01/27/19 08:01 01/27/19 08:01 01/27/19 08:01 01/27/19 08:01 Intake and Output: 01/27/19 01/27/19 06:59 18:59 Intake Total 374.0 360.4 Output Total 1300 Balance -926.0 360.4 - Medications Medications: Current Medications Aspirin (Ecotrin) 81 mg PO DAILY [facility] Clopidogrel Bisulfate (Plavix) 75 mg PO DAILY [facility] Diltiazem HCl (Cardizem) 30 mg PO QID [facility] Enalapril Maleate (Vasotec) 2.5 mg PO DAILY [facility] Famotidine (Pepcid) 20 mg PO BID [facility] Nitroglycerin/Dextrose (Nitroglycerin 50 Mg/250 Ml D5w) 50 mg in 250 mls @ 3 mls/hr IV .Q24H ONE Stop: 01/27/19 20:44 Last Admin: 01/26/19 21:11 Dose: 3 mls/hr Heparin Sodium/Sodium Chloride (Heparin 47466 Units/250ml 1/2 Normal Saline) 25,000 units in 250 mls @ 10.375 mls/hr IV .Q24H PRN; Protocol PRN Reason: ADJUST RATE PER PROTOCOL Last Titration: 01/27/19 08:08 Dose: 14 units/kg/hr, 12.104 mls/hr Rosuvastatin Calcium (Crestor) 10 mg PO HS SHANI - Labs Labs: 01/27/19 06:21 01/27/19 06:21 PT 12.7 SECONDS (9.7-12.2) H 01/26/19 20:04 INR 1.2 01/26/19 20:04 APTT 39.0 SECONDS (21-34) H D 01/27/19 06:21 - Constitutional Appears: Non-toxic, No Acute Distress - Head Exam Head Exam: NORMAL INSPECTION - Eye Exam Eye Exam: EOMI - ENT Exam ENT Exam: Mucous Membranes Moist - Respiratory Exam Respiratory Exam: Clear to Ausculation Bilateral, NORMAL BREATHING PATTERN. absent: Rales, Rhonchi, Wheezes - Cardiovascular Exam Cardiovascular Exam: REGULAR RHYTHM, +S1, +S2 - GI/Abdominal Exam GI & Abdominal Exam: Soft, Normal Bowel Sounds. absent: Distended, Firm, Guarding, Rigid, Tenderness, Rebound - Extremities Exam Extremities Exam: absent: Pedal Edema, Tenderness - Neurological Exam Neurological Exam: Alert, Awake, Oriented x3 - Psychiatric Exam Psychiatric exam: Normal Affect, Normal Mood - Skin Skin Exam: Dry, Normal Color, Warm Assessment and Plan (1) ST elevation Status: Acute (2) Family history of OK (myocardial infarction) Status: Acute (3) Hypertension Status: Acute (4) Obesity Status: Acute (5) Smoker Status: Acute (6) Transaminitis Status: Acute (7) Prophylactic measure Status: Acute Attending/Attestation - Attestation I have personally seen and examined this patient.: Yes I have fully participated in the care of the patient.: Yes I have reviewed all pertinent clinical information, including history, physical exam and plan: Yes Notes (Text): Chest Pain Acute inferior wall [place] with stent in left circumflex on 01/21/[address] Dean on board In ED, patient received ASA 325mg Plavix 300mg PO, Heparin 5000 units, Protonix 40mg Repeat Cath today: circumflex occluded; awaiting official report Patient and fiance is amenable to CABG Ordered for repeat echo to check repeat LV function Hold Plavix per [place]; continue Aspirin and Heparin drip Thoracic surgery (Dr Dan) evaluation Heparin drip patient reports compliance with his medications since post discharge; cessation of medications. CXR no infiltrates ASA 81mg PO Cardizem 30mg PO QID (hold for SBP <110, HR <60) Enalapril 2.5mg PO Crestor 10mg PO HS Hematuria (resolved) Repeat UA cleared History of hypertension Cardizem 30mg PO QID (hold for SBP <110, HR <60) Enalapril 2.5mg PO daily History of cocaine abuse Hold Beta blockers UDS this admission: negative for cocaine History of alcohol use Patient states he has not drank alcohol since discharge Alcohol <10 History of tobacco use Has not smoked since discharge on 01/23/19 Does not want patch Nail discoloration of toes Toenails discolored, reportedly from dye from [employer] Hep C reactive Hep C reactive on last admission Never received treatment Prophylaxis Pepcid 20mg PO BID SCDs Heparin drip
[2019-01-27 13:36] VITALS: TEMP 98.3
[2019-01-27 14:30] VITALS: O2SAT 97
[2019-01-27 15:56] VITALS: BP 105/69; PULSE 78; RESP 8
--- NOTE | 2019-01-27 23:19 | CP.PCM.DIS ---
Provider - Provider Date of Admission: 01/26/19 20:36 Attending physician: Gabby Burgess DO Primary care physician: Dr. Rice Consults: 01/26/19 22:14 Physician Consult Routine Comment: Consulting Provider: Elkin Tran Consulting Physician: Elkin Tran Reason for Consult: recent STEMI with stenting, chest pain 01/26/19 22:20 Inpatient [employer] Core Measures Referral Routine Comment: Physician Instructions: Reason For Exam: chest pain hx of mi 01/27/19 10:26 Physician Consult Routine Comment: Consulting Provider: Francisco Dan Consulting Physician: Francisco Dan Reason for Consult: CABG evaluation, LAD 60-65%, circumflex (occlusion/stent) Additional Comments: asked by Dr. Tran Time Spent in preparation of Discharge (in minutes): 31 Diagnosis - Discharge Diagnosis (1) ST elevation Status: Acute Comment: Code heart last admission. Reocclusion of left circumflex inspite of dual platelet therapy. Cardiology on case given left circumflex and also LAD, indicated for CABG. patient and fiance amenable for cabg upon discussion. transferred to [facility] [place] for cabg (2) Family history of NE (myocardial infarction) Status: Chronic (3) Hypertension Status: Chronic (4) Obesity Status: Chronic (5) Smoker Status: Chronic (6) Transaminitis Status: Acute (7) Prophylactic measure Status: Acute Hospital Course - Lab Results Lab Results: Micro Results 01/26/19 21:43 Nose MRSA Culture (Admit) - Final MRSA NOT DETECTED Most Recent Lab Values WBC 9.1 K/uL (4.8-10.8) 01/27/19 06:21 RBC 4.67 Mil/uL (4.40-5.90) 01/27/19 06:21 Hgb 14.6 g/dL (12.0-18.0) 01/27/19 06:21 Hct 42.7 % (35.0-51.0) 01/27/19 06:21 MCV 91.4 fL (80.0-94.0) 01/27/19 06:21 MCH 31.3 pg (27.0-31.0) H 01/27/19 06:21 MCHC 34.2 g/dL (33.0-37.0) 01/27/19 06:21 RDW 15.9 % (11.5-14.5) H 01/27/19 06:21 Plt Count 286 K/uL (130-400) 01/27/19 06:21 MPV 9.1 fL (7.2-11.7) 01/27/19 06:21 Neut % (Auto) 64.7 % (50.0-75.0) 01/27/19 06:21 Lymph % (Auto) 16.4 % (20.0-40.0) L 01/27/19 06:21 [place] % (Auto) 10.4 % (0.0-10.0) H 01/27/19 06:21 Eos % (Auto) 7.9 % (0.0-4.0) H 01/27/19 06:21 Baso % (Auto) 0.6 % (0.0-2.0) 01/27/19 06:21 Neut # (Auto) 5.9 K/uL (1.8-7.0) 01/27/19 06:21 Lymph # (Auto) 1.5 K/uL (1.0-4.3) 01/27/19 06:21 [place] # (Auto) 0.9 K/uL (0.0-0.8) H 01/27/19 06:21 Eos # (Auto) 0.7 K/uL (0.0-0.7) 01/27/19 06:21 Baso # (Auto) 0.1 K/uL (0.0-0.2) 01/27/19 06:21 PT 12.7 SECONDS (9.7-12.2) H 01/26/19 20:04 INR 1.2 01/26/19 20:04 APTT 39.0 SECONDS (21-34) H D 01/27/19 06:21 Sodium 132 mmol/L (132-148) 01/27/19 06:21 Potassium 4.5 mmol/L (3.6-5.2) 01/27/19 06:21 Chloride 99 mmol/L (98-107) 01/27/19 06:21 Carbon Dioxide 27 mmol/L (22-30) 01/27/19 06:21 Anion Gap 11 (10-20) 01/27/19 06:21 BUN 24 mg/dL (9-20) H 01/27/19 06:21 Creatinine 0.9 mg/dL (0.8-1.5) 01/27/19 06:21 Est GFR ( Amer) > 60 01/27/19 06:21 Est GFR (Non-Af Amer) > 60 01/27/19 06:21 Random Glucose 101 mg/dL (75-110) 01/27/19 06:21 Calcium 8.5 mg/dl (8.6-10.4) L 01/27/19 06:21 Phosphorus 4.1 mg/dL (2.5-4.5) 01/27/19 06:21 Magnesium 1.7 mg/dL (1.6-2.3) 01/27/19 06:21 Total Bilirubin 0.6 mg/dL (0.2-1.3) 01/27/19 06:21 AST 94 U/L (17-59) H 01/27/19 06:21 ALT 101 U/L (21-72) H 01/27/19 06:21 Alkaline Phosphatase 55 U/L (38-126) 01/27/19 06:21 Total Creatine Kinase 240 U/L (55-170) H 01/27/19 06:21 CK-MB (Mass) 12.0 ng/mL (0.0-3.38) H 01/27/19 06:21 Troponin I 4.5000 ng/mL (0.00-0.120) H* 01/27/19 06:21 Total Protein 6.5 g/dL (6.3-8.3) 01/27/19 06:21 Albumin 3.7 g/dL (3.5-5.0) 01/27/19 06:21 Globulin 2.8 gm/dL (2.2-3.9) 01/27/19 06:21 Albumin/Globulin Ratio 1.3 (1.0-2.1) 01/27/19 06:21 Lipase 140 U/L (23-300) 01/26/19 20:04 Urine Color Yellow (YELLOW) 01/27/19 06:20 Urine Clarity Clear (Clear) 01/27/19 06:20 Urine pH 5.0 (5.0-8.0) 01/27/19 06:20 Ur Specific [place] 1.013 (1.003-1.030) 01/27/19 06:20 Urine Protein Negative mg/dL (NEGATIVE) 01/27/19 06:20 Urine Glucose (UA) Normal mg/dL (Normal) 01/27/19 06:20 Urine Ketones Negative mg/dL (NEGATIVE) 01/27/19 06:20 Urine Blood Negative (NEGATIVE) 01/27/19 06:20 Urine Nitrate Negative (NEGATIVE) 01/27/19 06:20 Urine Bilirubin Negative (NEGATIVE) 01/27/19 06:20 Urine Urobilinogen Normal mg/dL (0.2-1.0) 01/27/19 06:20 Ur Leukocyte Esterase Neg Ruma/uL (Negative) 01/27/19 06:20 Urine WBC (Auto) 1 /hpf (0-5) 01/27/19 06:20 Urine RBC (Auto) 3 /hpf (0-3) 01/26/19 21:05 Urine Opiates Screen Negative (NEGATIVE) 01/26/19 21:05 Urine Methadone Screen Negative (NEGATIVE) 01/26/19 21:05 Ur Barbiturates Screen Positive (NEGATIVE) H 01/26/19 21:05 Ur Phencyclidine Scrn Negative (NEGATIVE) 01/26/19 21:05 Ur Amphetamines Screen Negative (NEGATIVE) 01/26/19 21:05 U Benzodiazepines Scrn Negative (NEGATIVE) 01/26/19 21:05 U Oth Cocaine Metabols Negative (NEGATIVE) 01/26/19 21:05 U Cannabinoids Screen Negative (NEGATIVE) 01/26/19 21:05 Alcohol, Quantitative < 10 mg/dl (0-10) 01/26/19 20:04 - Hospital Course Hospital Course: As H&P "PI: Patient is a 58 year old male with history of recent ST elevation NE status post stenting of left circumflex on 01/21/19 who presents for intermittent chest tightness that started earlier today. He states he woke up this morning without any discomfort, and developed mild chest tightness while he was in a [employer] on his way to run some errands. He states he did not think much of it at that time, thought it might be gas, and went about his day. He states he returned home and noticed he had midsternal chest tightness rated 5/10 when he laid down in his bed. He states it remained at a 5/10 for about 20 mins, after which it went down to a 2/10. He then took a shower, and then decided to come in because he did not want his chest tightness to worsen anymore. He called an [employer] to bring him to the ER for further evaluation. He states he denies nausea, vomiting, diaphoresis, radiation of pain, neck, jaw, arm weakness. He was recently admitted here on 01/21/19 for acute onset of chest pain, initially found to be in wide complex tachycardia, received Amiodarone, Cardizem, cardioverted and then found to have ST elevations in the inferior leads. [facility] was subsequently called and patient had emergent cardiac catheterization on 01/21/[address] Raygoza who subsequently stented left circumfl ex with additional findings of 60-70% stenosis of LAD. He was discharged on 01/23/19 with Aspirin and Plavix and he states he has been compliant with his medications on discharge. PMH: Hypertension, ST elevation NE with L circumflex stent, Hep C reactive at last admission - untreated PSH: L circumflex stent, FB removal, cyst removal over right chest Social hx: smoked 2 to 3 cigarettes a week since age 17, Alcohol intermittently cannot specifiy how much, history of cocaine and marijuana use (states that he has not used cocaine in a long time and believes that marijuana was laced with cocaine, leading to positive cocaine on UDS on recent hospitalization). States he has not smoked, drank alcohol or used any drug since his discharge on 01/23/19. 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 Family hx: Father had NE at age 55 Allergies: NKDA" Patient admitted to the ICU. Cardiology consulted. Patient underwent cardiac cath; noting reocclusion of left circumflex in spite of plavix therapy. Recommendation for CABG in light restenosis and also LAD noted 60-65% in spite of dual antiplatelet therapy. Thoracic surgery consulted. Patient and fiance spoke with me and cardiology in light of cath findings, agreed for CABG evaluation. Patient transferred to [facility] for further care for CABG, which is not performed at [facility]. This is a brief summary of patient's hospitalization. Please refer to EMR for full detail of record. - Date & Time of H&P Date of H&P: 01/26/19 Time of H&P: 21:58 Discharge Plan - Follow Up Plan Condition: GUARDED Disposition: Trans to Other Acute Care Hosp
--- NOTE | 2019-01-28 03:13 | CARD ---
APPROVED REPORT Date of service: 01/26/2019 EKG Measurement Heart [id number] <Conclusion> Normal sinus rhythm Left axis deviation Inferior infarct, possibly acute ACUTE ID / STEMI Consider right ventricular involvement in acute inferior infarct Abnormal ECG
--- NOTE | 2019-02-02 06:18 | CARDCATH ---
PROCEDURE DATE: 01/27/2019 PROCEDURE: Coronary angiogram. REFERRING PHYSICIAN: Jose Terry DO PERFORMING PHYSICIAN: Elkin Tran MD CLINICAL INDICATIONS: 1. Chest pain. 2. [id number] myocardial infarction. 3. Hypertension. 4. Hyperlipidemia. 5. History of recent myocardial infarction, status post left circumflex stent placement. DESCRIPTION OF PROCEDURE: After informed consent, the patient was prepped and draped in the usual sterile fashion. Lidocaine 2% was given in the right wrist for local anesthesia. Using micropuncture technique, a 6-Polish sheath was introduced into right radial artery. A 6-Polish [place] catheter engaged into the left main coronary artery. Contrast injected and left coronary angiogram was done. Since the patient had a recent cath and right coronary artery was nondominant, repeat right coronary angiogram was not done. The patient tolerated the procedure well. Postprocedure Terumo radial band applied to right wrist with excellent hemostasis. FINDINGS: 1. Left main coronary artery is patent. 2. Mid LAD has 70% stenosis. D1, D2, and D3 branches have a significant ostial stenosis. D1 has ostial 99% stenosis. D2 also has a 99% ostial stenosis. D3 has a 90% ostial stenosis. 3. Left circumflex is 100% occluded in the mid region. This is an in-stent restenosis. Obtuse marginal 1 branch is patent. The patient has collaterals from the LAD to left circumflex region, but the collaterals are not completely formed. CONCLUSION: The patient had a recent AR, status post left circumflex stent placement. However, presented with chest pain again, [id number] myocardial infarction. The patient had a totally occluded prior stent. LAD has a mid 70% stenosis. All the diagonal branches have disease. Due to the in-stent restenosis and multiple lesions, recommend coronary artery bypass grafting. Elkin Tran MD
== END 2019-01-27 16:19 | disposition short-term general hospital (02) | DRG 190 ==
LOC: C.ER 19:22 → C.9I 20:36
PROVIDERS: ADMIT Hospitalist; ATTEND Hospitalist
PROC: 4A023N7 Measurement of Cardiac Sampling and Pressure, Left Heart, Percutaneous Approach (ICD-10-PCS; principal; 2019-01-27)
PROC: B2151ZZ Fluoroscopy of Left Heart using Low Osmolar Contrast (ICD-10-PCS; 2019-01-27)
PROC: B2111ZZ Fluoroscopy of Multiple Coronary Arteries using Low Osmolar Contrast (ICD-10-PCS; 2019-01-27)
DX: I21.4 Non-ST elevation (NSTEMI) myocardial infarction (principal); I25.10 Atherosclerotic heart disease of native coronary artery without angina pectoris; I21.19 ST elevation (STEMI) myocardial infarction involving other coronary artery of inferior wall; I10 Essential (primary) hypertension; J43.9 Emphysema, unspecified; B19.20 Unspecified viral hepatitis C without hepatic coma; E66.9 Obesity, unspecified; F17.210 Nicotine dependence, cigarettes, uncomplicated; Z95.5 Presence of coronary angioplasty implant and graft; Z82.49 Family history of ischemic heart disease and other diseases of the circulatory system